=== PATIENT | female | born 1985 | race Caucasian/White ===

== ENCOUNTER 2017-11-01 22:54 | Emergency (ER) | payer OTHER ==
[~2017-11-01] VITALS: Ht 154.9 cm; Wt 79.5 kg
[2017-11-01 22:56] VITALS: TEMP 36.6; Ht 154.9 cm; Wt 79.5 kg
[2017-11-01] MEDS ORDERED: MULT-513 PO (23:08)
[2017-11-01 23:57] VITALS: BP 127/69; PULSE 81; O2SAT 96
--- NOTE | 2017-11-02 00:08 | EMERGENCY ROOM VISIT NOTE ---
History First contact with patient: 22:57 Chief Complaint: FALL Stated Complaint: FALL, STRIKING HEAD History of Present Illness The patient is a 32 year old female who presents to the Emergency Room via ambulance for evaluation of injuries after she fell at the [facility] this evening after a concert. The patient's friend reports that the patient was walking behind her and fell forward. They believe that she tripped as there were a lot of people trying to exit the arena. The patient believes that the patient was knocked out for approximately 5 minutes. The patient does not remember the fall, but does remember the concert and everything that happened before the injury. The patient does admit to moderate alcohol consumption tonight. She currently denies any facial pain, headache, neck pain, back pain or other extremity injuries, denying any pain on my exam. Review of Systems 10 system review was performed and was negative except for pertinent positives and negatives as indicated in history of present illness Past Medical/Surgical History Medical Problems: (1) Nonspecific abnormal results of thyroid function study Surgical Problems: (1) No history of previous surgery Family History Unremarkable Social History Smoking Status: Never Smoker Alcohol Use: occasionally Marital Status: single Occupation Status: employed Current/Historical Medications Scheduled Multivitamins/Minerals (Mvi With Minerals), 1 TAB PO DAILY Physical Exam Vital Signs Date Time Temp Pulse Resp B/P (MAP) Pulse Ox O2 Delivery O2 Flow Rate FiO2 11/01/17 23:57 81 18 127/69 96 Room Air 11/01/17 22:56 36.6 98 20 133/79 96 Room Air Physical Exam CONSTITUTIONAL: Healthy and well nourished. Alert and oriented X 3 with positive affect. GCS 15. Patient does not appear in any acute distress. She is in full spinal immobilization on a long board with cervical collar in place prior to my exam. HEENT: Examination shows a small abrasion to the tip of the nose, otherwise no other facial edema, ecchymosis, abrasions or lacerations noted. She has no tenderness to palpation of the facial bones. No epistaxis, hemotympanum, raccoon's eyes, subconjunctival hemorrhage, hemotympanum or knutson sign. Pupils equal, round and reactive. EOMs intact without evidence for entrapment. NECK: Patient has no focal or generalized tenderness to palpation of the cervical spine. Given the mechanism of injury, cervical collar was left in place until after CT studies were performed. RESPIRATORY: Clear to auscultation bilaterally with no wheezing, crackles, rhonchi or stridor. CARDIOVASCULAR: Regular rate and rhythm with no murmurs, rubs or gallops. GASTROINTESTINAL: Bowel sounds present in all quadrants. Soft and nontender to palpation. MUSCULOSKELETAL: Full range of motion of all joints without discomfort. The patient has a few abrasions to the upper arms and hands, otherwise has full range of motion of all extremities without discomfort. The patient has no tenderness to palpation through the central thoracolumbar spine or ribs. Distal pulses are intact. INTEGUMENTARY: No rash or other significant dermatologic conditions noted. NEUROLOGIC: Cranial nerves II-XII grossly intact. No focal neurologic deficits noted. Upper and lower extremities are sensory intact. Medical Decision & Procedures ER Provider Diagnostic Interpretation: Noncontrast CT of the head and cervical spine did not show any acute fractures, subluxations, intracranial bleed or skull trauma. A small hypodense nodule in the left thyroid lobe is noted, along with scattered small lymph nodes, likely reactive in nature. STATRad reports were reviewed, and local radiologist review is pending. ED Course Patient history and physical exam were performed. Nurse's notes were reviewed. Vital signs were reviewed and were normal. The patient refused any analgesics. Noncontrast CT of the head and cervical spine was normal except for a small hypodense nodule in the left thyroid lobe. The patient reports that she has had thyroid nodules and abnormal thyroid function tests in the past. The patient was encouraged to intermittently apply ice to areas of discomfort. Ibuprofen and Tylenol as needed for pain. The patient was advised that she may have a concussion. The patient reports that she has had concussions before in the past, and understands how to manage them. She was encouraged to follow-up with her PCP as needed for further management. The patient was happy with plan of care, voiced understanding of all discharge instructions, and denied any significant discomfort at the time of discharge. After the patient left the emergency department, she returned because of notable left neck discomfort. CT findings were reviewed with the patient. I explained that her symptoms are likely from cervical spasm from her injury and wearing a cervical collar. She was encouraged to also intermittently apply ice to the neck. She was provided a Flexeril home pack for additional symptomatic relief. Medical Decision Head Trauma GCS Score: 15 Medication Reconcilliation Current Medication List: was personally reviewed by me Blood Pressure Screening Patient's blood pressure: Normal blood pressure Impression Primary Impression: Closed head injury with brief loss of consciousness Additional Impressions: Multiple abrasions Left thyroid nodule Departure Information Patient Instructions My [facility] Problem Qualifiers
[2017-11-02] MEDS ORDERED: FLEXERIL HOME PACK 10 MG VIAL PO ONE (00:15)
--- NOTE | 2017-11-02 06:02 | DIAGNOSTIC IMAGING REPORT ---
CERVICAL SPINE W/O CT DOSE: HISTORY: Trauma. Pain. CHI w/ LOC TECHNIQUE: Multiaxial CT images of the cervical spine were performed and reformatted in the sagittal and coronal plane without the use of contrast. A dose lowering technique was utilized adhering to the principles of ALARA. COMPARISON: None. FINDINGS: No fractures. No subluxation. Prevertebral soft tissues and the C1-C2 interval are intact. No pneumothorax. Nodular appearing thyroid. Prevertebral soft tissues are unremarkable. IMPRESSION: No acute process. The above report was generated using voice recognition software. It may contain grammatical, syntax or spelling errors. Electronically signed by: Matt Andersen M.D. 11/02/2017 6:00 AM Dictated Date/Time: 11/02/2017 6:00 AM
--- NOTE | 2017-11-02 06:04 | DIAGNOSTIC IMAGING REPORT ---
HEAD WITHOUT CONTRAST (CT) CT DOSE: 929.84 mGy.cm HISTORY: Trauma mental status change. CHI w/ LOC TECHNIQUE: Multiaxial CT images of the head were performed without the use of intravenous contrast. A dose lowering technique was utilized adhering to the principles of ALARA. Comparison: None. Findings: Moderate mucosal thickening of the maxillary and ethmoid sinuses. The calvarium and skull base are intact. The ventricles and sulci are within normal limits. There is no mass, hematoma, midline shift, or acute infarct. Impression: No acute intracranial abnormality. Moderate mucosal thickening of the maxillary and ethmoid sinuses. Left extracranial soft tissue edematous change. The above report was generated using voice recognition software. It may contain grammatical, syntax or spelling errors. Electronically signed by: Matt Andersen M.D. 11/02/2017 6:03 AM Dictated Date/Time: 11/02/2017 6:02 AM
== END 2017-11-01 23:59 | disposition home or self-care (01) ==
LOC: C.EDA 22:56
DX: S09.90XA Unspecified injury of head, initial encounter (principal); W19.XXXA Unspecified fall, initial encounter; Y92.29 Other specified public building as the place of occurrence of the external cause; S00.31XA Abrasion of nose, initial encounter; S40.811A Abrasion of right upper arm, initial encounter; S40.812A Abrasion of left upper arm, initial encounter; S60.511A Abrasion of right hand, initial encounter; S60.512A Abrasion of left hand, initial encounter; E04.1 Nontoxic single thyroid nodule

== ENCOUNTER → 2017-11-06 | Outpatient (CLI) | payer BC ==
[~2017-11-06] MED LIST: MULT-513 PO
== END | disposition home or self-care (01) ==
LOC: C.LABBC 11:51
PROVIDERS: ATTEND Nurse Practitioner Family
DX: E04.1 Nontoxic single thyroid nodule (principal)

== ENCOUNTER → 2017-11-11 | Outpatient (CLI) | payer BC ==
--- NOTE | 2017-11-11 09:19 | DIAGNOSTIC IMAGING REPORT ---
THYROID ULTRASOUND HISTORY: E04.1 Solitary thyroid nodule Patient is scheduled on 11/11/17 @ 8: COMPARISON: Cervical spine CT 11/06/2017. FINDINGS: Right lobe: 4.2 x 1.4 x 1.1 cm. There is an 8 x 4 x 4 mm isoechoic nodule posterior to the lower pole. This is well-circumscribed and could represent a small parathyroid adenoma or exophytic nodule. Left lobe: 4.0 x 1.1 x 1.3 cm. 3 mm cyst. No solid nodules. Isthmus: 2 mm in thickness. No nodules. IMPRESSION: 1. An 8 x 4 x 4 mm isoechoic nodule posterior to the lower pole of the right thyroid lobe. This is well circumscribed and could represent a small parathyroid adenoma or exophytic nodule. 2. No solid left thyroid nodules. Electronically signed by: Sharath Boyer M.D. 11/11/2017 9:18 AM Dictated Date/Time: 11/11/2017 9:15 AM
== END | disposition home or self-care (01) ==
LOC: C.ULTR 08:07
PROVIDERS: ATTEND Nurse Practitioner Family
DX: E04.1 Nontoxic single thyroid nodule (principal)

== ENCOUNTER → 2017-11-28 | Outpatient (CLI) | payer BC ==
--- NOTE | 2017-11-28 15:30 | DIAGNOSTIC IMAGING REPORT ---
L SHOULDER MIN 2 VIEWS ROUTINE CLINICAL HISTORY: 32 years-old Female presenting with M25.512 Left shoulder pain, fall 3 weeks ago. TECHNIQUE: External rotation, internal rotation, Grashey views of the left shoulder were obtained. COMPARISON: None. FINDINGS: Glenohumeral and acromioclavicular joints congruent. Linear calcification in the left humeral metaphysis, possibly postprocedural change or growth lines. No acute fracture or malalignment. No advanced degenerative change. No radiographic soft tissue abnormality. IMPRESSION: No acute osseous injury. Electronically signed by: Leoncio Garza M.D. 11/28/2017 3:29 PM Dictated Date/Time: 11/28/2017 3:27 PM
[2017-11-28 17:41] LABS: ALBUMIN 3.9 gm/dl (3.4-5.0); ALT/SGPT 23 U/L (12-78); AST/SGOT 15 U/L (15-37); BLOOD UREA NITROGEN 17 mg/dl (7-18); CALCIUM 9.1 mg/dl (8.5-10.1); CARBON DIOXIDE 30 mmol/L (21-32); GLUCOSE 141 mg/dl (70-99); POTASSIUM 3.7 mmol/L (3.5-5.1); SODIUM 137 mmol/L (136-145)
[2017-11-28 17:43] LABS: ALKALINE PHOSPHATASE 60 U/L (45-117); TOTAL PROTEIN 7.7 gm/dl (6.4-8.2)
== END | disposition home or self-care (01) ==
LOC: C.RADBC 14:56
PROVIDERS: ATTEND Nurse Practitioner Family
DX: M25.512 Pain in left shoulder (principal); E04.1 Nontoxic single thyroid nodule

== ENCOUNTER 2020-05-03 08:03 | Inpatient (IN) ==
[2020-05-03] MEDS ORDERED: OXYTOCIN 30 UNITS/500 ML BAG IV PRN (09:59)
--- NOTE | 2020-05-03 10:02 | Obstetrical Progress Note ---
Date of Service May 03, 2020 Assessment & Plan Admission and Anticipated Discharge Date Admission Date: May 03, 2020 Subjective pt doing well induction for post dates Bedside sono; VT FHR; CAYT1 Ctx; irregular VE:t/thick/-3 roy bulb placed and filled wit 30 cc saline'pt tolerated procedure well Results & Data ([facility]) Vital Signs (Past 12 Hours) Vital Signs Temp Pulse Resp BP 05/03/20 08:09 94 H 135/96 05/03/20 08:08 36.9 C 18
[2020-05-03 10:21] LABS: Hematocrit (blood only) 37.8 % (37-47); Hemoglobin 12.7 g/dL (12.0-16.0); Mean Corpuscular Hemoglobin 29.1 pg (25-34); Mean Corpuscular Volume 86.7 fL (80-100); Platelet Count 251 K/uL (130-400); RDW Coefficient of Variation 13.9 % (11.5-14.5); Red Blood Count 4.36 M/uL (4.2-5.4); White Blood Count 8.92 K/uL (4.8-10.8)
[2020-05-03] MEDS: OXYTOCIN 30 UNITS/500 ML BAG IV PRN (10:41)
[2020-05-03] MEDS: LACTATED RINGER'S 1,000 ML IV PRN ×3 (10:41→20:07)
[2020-05-03] MEDS ORDERED: PENICILLIN G POTASSIUM 6 MU in DEXTROSE 5% 250 ML IV STA (11:10)
[2020-05-03 11:28] LABS: Mean Corpuscular Hgb Conc 33.6 g/dL (32-36)
[2020-05-03] MEDS: PENICILLIN G POTASSIUM 3 MU in DEXTROSE 5% 100 ML IV PRN ×3 (15:27→22:42)
[2020-05-03] MEDS ORDERED: ACETAMINOPHEN 500 MG TAB PO ONE ×2 (15:32→21:21)
[2020-05-03] MEDS ORDERED: BUPIVACAINE 0.25% 30 ML VIAL ONE (16:06)
[2020-05-03] MEDS ORDERED: ePHEDrine sulfate 50 MG/ML AMP ONE (16:06)
[2020-05-03] MEDS ORDERED: fentaNYL citrate 100 MCG/2 ML VIAL ONE (16:07)
[2020-05-03] MEDS ORDERED: fentaNYL 2MCG/ML ROPIV 1.25MG/ML 100 ML BAG EPI ONE (16:07)
--- NOTE | 2020-05-03 16:30 | Anesthesiology Consultation ---
Date of Service May 03, 2020 Assessment & Plan (1) Encounter for pre-operative examination: 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: Acceptable Risk for Labor Epidural Consults Requested none ASA ASA2 Proposed Anesthesia Anesthesia Type: Labor Epidural Risk / Benefits Reviewed With: PT / POA / Parent / Guardian, Accepts Plan and Informed Consent Obtained History Height/Weight Height: 5 ft 1 in Weight: 84.822 kg Allergies Allergy/AdvReac Type Severity Reaction Status Date / Time No Known Drug Allergies Allergy Unknown Verified 05/03/20 08:14 Medications Home Medications Medication Instructions Recorded Confirmed Last Taken levothyroxine 50 mcg tablet See Rx Instructions PO .COMPLEX 08/25/19 05/03/20 05/03/20 05:50 #110 tab prenat.vits,holly,[id number] 1 tab PO DAILY 09/14/19 05/03/20 05/02/20 12:00 loratadine 10 mg pe PO DAILY PRN 11/17/19 05/03/20 05/03/20 07:30 famotidine [Pepcid] 20 mg PO DAILY 05/03/20 05/03/20 05/03/20 01:30 psyllium husk [Metamucil] 1 tbsp PO DAILY 05/03/20 05/03/20 05/02/20 09:00 Active Medications Generic Name Dose Route Start Last Admin Trade Name Freq PRN Reason Stop Dose Admin Lactated Ringer's 1,000 mls @ 125 mls/hr 05/03/20 09:59 05/03/20 16:12 Lr IV 05/05/20 09:58 999 mls/hr .Q8H PRN Administration L&D Protocol Protocol Oxytocin 30 units in 500 mls @ 12 mls/hr 05/03/20 09:59 05/03/20 15:15 Pitocin IV 05/05/20 09:58 0.72 units/hr .Q24H PRN 12 mls/hr Labor Induction/Augmentation Titration Protocol 0.72 UNITS/HR Penicillin G Potassium 3 mu/ 106 mls @ 100 mls/hr 05/03/20 11:07 05/03/20 15:27 Dextrose IV 05/13/20 11:06 100 mls/hr Q4H PRN Administration Give until delivery Past Medical History Medical History History of PCOS Hypothyroidism well controlled with meds Exercise / Class Metabolic Activity II 4-5 Yardwork/Stairs/Walk up hill Past Family History Family History Father Prostate cancer Mother Malignant neoplasm of urethra Family/Other No problems noted. Grandfather (Maternal) Colorectal cancer Denies family history of Ovarian cancer Myocardial infarction Breast cancer Past Surgical History Surgical History No pertinent past surgical history Past Anesthesia History No Hx of Anesthesia Complications and No Family Hx of Anesthesia Complications History of PONV No Hx of PONV and No Hx of Motion Sickness Social History Smoking Status: Never smoker Hx Alcohol Use: Yes Hx Substance Use: No substance use type: does not use Physical Exam Vital Signs Last Vital Signs Temp 98.2 F 05/03/20 15:15 Pulse 91 H 05/03/20 16:27 Resp 16 05/03/20 15:15 BP 137/85 05/03/20 15:41 Pulse Ox 98 05/03/20 16:27 ENMT Mouth: no dentition abnormality Thyromental Distance: > or= 3.5 Finger Breadths Mallampati Class: II Neck normal visual inspection Respiratory normal respiratory effort Auscultation: lungs clear to auscultation bilaterally Cardiovascular Rate/Rhythm: regular rate and regular rhythm Testing Laboratory Results 05/03/20 10:11
[2020-05-03] MEDS ORDERED: NALOXONE HCL 1 MG in SODIUM CHLORIDE 0.9% 1000ML 1,000 ML IV PRN (16:49)
[2020-05-03] MEDS ORDERED: ONDANSETRON INJ 2 MG/ML 2 ML VIAL IV PRN (16:49)
[2020-05-03] MEDS ORDERED: DiphenhydrAMINE HCL 50 MG/ML VIAL IV PRN (16:49)
[2020-05-03] MEDS ORDERED: NALOXONE HCL 0.4 MG/1 ML VIAL/CARP IV PRN (16:49)
[2020-05-03] MEDS ORDERED: ePHEDrine sulfate 50 MG/ML AMP IV PRN (16:49)
[2020-05-03] MEDS ORDERED: CALCIUM CARBONATE 500 MG CHEWABLE TAB ONE (20:23)
[2020-05-03] MEDS: CALCIUM CARBONATE 500 MG CHEWABLE TAB PO PRN (20:24)
[2020-05-04] MEDS: CALCIUM CARBONATE 500 MG CHEWABLE TAB PO PRN (00:11)
[2020-05-04] MEDS ORDERED: FAMOTIDINE 40 MG TABLET PO ONE (00:59)
[2020-05-04] MEDS ORDERED: Nursing to Pharmacy Communication SCH (01:15)
[2020-05-04] MEDS: fentaNYL 2MCG/ML ROPIV 1.25MG/ML 100 ML BAG EPI PRN ×2 (01:55→09:32)
[2020-05-04] MEDS: PENICILLIN G POTASSIUM 3 MU in DEXTROSE 5% 100 ML IV PRN ×3 (03:12→11:37)
[2020-05-04] MEDS: LACTATED RINGER'S 1,000 ML IV PRN ×3 (03:50→14:38)
[2020-05-04] MEDS: OXYTOCIN 30 UNITS/500 ML BAG IV PRN (13:52)
[2020-05-04] MEDS ORDERED: cefOXitin 2,000 MG in DEXTROSE 5% 50 ML IV SCH (15:00)
[2020-05-04] MEDS ORDERED: CITRIC ACID/SODIUM CITRATE 15 ML UDC PO SCH (15:00)
[2020-05-04] MEDS ORDERED: ONDANSETRON INJ 2 MG/ML 2 ML VIAL ONE (15:08)
[2020-05-04] MEDS ORDERED: CITRIC ACID/SODIUM CITRATE 15 ML UDC ONE (15:09)
[2020-05-04] MEDS ORDERED: LIDOCAINE/EPINEPHRINE 2% 1:200,000 20 ML SDV ONE ×2 (15:09→15:34)
[2020-05-04] MEDS ORDERED: SODIUM CHLORIDE 0.9% INJ 10 ML VIAL ONE (15:13)
--- NOTE | 2020-05-04 15:20 | History and Physical Report ---
DATE OF ADMISSION: 05/03/2020 CHIEF COMPLAINT: Arrest of labor, persistent tachycardia. HISTORY OF PRESENT ILLNESS: The patient is a 35-year-old 1, para 0. Her general health is good. She is on thyroid replacement, has been diagnosed for 3 years. No drug allergies. Her due date is 04/26/2020. No other complications. She was brought in for induction, being over her expected date of confinement. Estimated weight on admission was over 8 pounds. She has had IV Pitocin. She has had a Kinney bulb. She has had an epidural for 22 hours. She became fully dilated. She was allowed to labor down for over an hour and she pushed for over 2 hours. The fetus began to exhibit tachycardia for the last hour and a half. She has been unable to engage the head into the mid pelvis. There is a large amount of molding and she has essentially made no progress in descent. After over 2 hours and inability to engage the head into the mid pelvis, she is still at a -1 station, diagnosis of cephalopelvic disproportion was made along with tachycardia and a was undertaken. PAST SURGICAL HISTORY: She has wisdom teeth removed. PAST MEDICAL HISTORY: Hypothyroid for 3 years. SOCIAL HISTORY: No smoking, no alcohol intake. 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 FAMILY HISTORY: Mom at age 56 of bladder cancer. Father 63 and he has bladder cancer. One brother and one sister in good health. REVIEW OF SYSTEMS: HEAD: No symptoms of frequent or severe headaches. EYES: No symptoms of blurred vision or double vision. EARS: No symptoms of frequent ear infections or difficulty hearing. PHYSICAL EXAMINATION: GENERAL: Well-developed, well-nourished 35-year-old white female, alert, oriented x3 and cooperative, in no acute distress, appears her stated age. EYES: Conjunctivae are pink. Sclerae white, no evidence of jaundice. EARS: Had normal light reflex bilaterally. NOSE: Had normal mucosa. Septum is midline. There were no polyps. THROAT: No erythema or evidence of infection. Teeth are in good state of repair. HEAD: Normocephalic, normal distribution of hair. NECK: Supple. Trachea midline. Thyroid is not enlarged. There is no adenopathy appreciated. Both carotids are of good intensity. CHEST: Clear to auscultation and percussion. No wheezes, rales or rhonchi appreciated. HEART: Had a regular rhythm. S1, S2 are normal. BREASTS: Normal. ABDOMEN: Revealed a gravid uterus, estimated weight of well over 8 pounds. PELVIS: Large amount of molding, vertex presentation, -1 station. MUSCULOSKELETAL: Revealed no calf tenderness. IMPRESSIONS OF THIS CASE: Post-term, hypothyroidism, tachycardia, macrosomia, cephalopelvic disproportion.
[2020-05-04 15:30] LABS: Basophils # (auto) 0.01 K/uL (0-0.2); Basophils % (auto) 0.1 %; Eosinophils # (auto) 0.01 K/uL (0-0.5); Eosinophils % (auto) 0.1 %; Hematocrit (blood only) 35.9 % (37-47); Hemoglobin 12.2 g/dL (12.0-16.0); Immature Granulocytes # (auto) 0.08 K/uL (0.00-0.02); Immature Granulocytes % (auto) 0.4 %; Lymphocytes # (auto) 0.67 K/uL (1.2-3.4); Lymphocytes % (auto) 3.5 %; Mean Corpuscular Hemoglobin 29.3 pg (25-34); Mean Corpuscular Volume 86.1 fL (80-100); Mean Platelet Volume 9.7 fL (7.4-10.4); Monocytes # (auto) 1.47 K/uL (0.11-0.59); Monocytes % (auto) 7.7 %; Neutrophils # (auto) 16.75 K/uL (1.4-6.5); Neutrophils % (auto) 88.2 %; Platelet Count 219 K/uL (130-400); RDW Coefficient of Variation 14.1 % (11.5-14.5); Red Blood Count 4.17 M/uL (4.2-5.4); White Blood Count 18.99 K/uL (4.8-10.8)
[2020-05-04] MEDS ORDERED: fentaNYL citrate 100 MCG/2 ML VIAL ONE (15:31)
[2020-05-04] MEDS ORDERED: OXYTOCIN 10 UNITS/ML VIAL ONE ×4 (15:51→16:16)
[2020-05-04] MEDS ORDERED: MoRPHine SULFATE PF 1 MG/ML 10 ML AMP/VIAL ONE (15:54)
[2020-05-04] MEDS ORDERED: LACTATED RINGER'S 500 ML IV PRN (15:57)
[2020-05-04] MEDS ORDERED: DiphenhydrAMINE HCL 50 MG/ML VIAL IV PRN (15:57)
[2020-05-04] MEDS ORDERED: NALOXONE HCL 0.4 MG/1 ML VIAL/CARP IV PRN (15:57)
[2020-05-04] MEDS ORDERED: MoRPHine SULFATE PF 1 MG/ML 10 ML AMP/VIAL EPI ONE (15:57)
[2020-05-04] MEDS ORDERED: NALOXONE HCL 1 MG in SODIUM CHLORIDE 0.9% 1000ML 1,000 ML IV PRN (15:57)
[2020-05-04] MEDS ORDERED: ONDANSETRON INJ 2 MG/ML 2 ML VIAL IV PRN (15:57)
[2020-05-04] MEDS ORDERED: ePHEDrine sulfate 50 MG/ML AMP IV PRN (15:57)
[2020-05-04] MEDS ORDERED: HYDROmorphone INJ 0.5 MG/0.5 ML SYR IV PRN (15:57)
[2020-05-04] MEDS ORDERED: NALOXONE HCL 0.08 MG in SYRINGE 1.8 ML IV PRN (15:57)
[2020-05-04] MEDS ORDERED: ACETAMINOPHEN 1000 MG/100 ML IV IV PRN (15:57)
[2020-05-04] MEDS ORDERED: NO NARCOTICS OR SEDATIVES SCH (16:00)
[2020-05-04] MEDS ORDERED: KETOROLAC 30 MG/ML VIAL ONE (16:00)
[2020-05-04] MEDS ORDERED: SODIUM CHLORIDE 0.9% 1000ML 1,000 ML IV SCH (16:00)
[2020-05-04] MEDS ORDERED: MAGNESIUM HYDROXIDE SUSP 30 ML UDC PO PRN (16:44)
[2020-05-04] MEDS ORDERED: BENZOCAINE 20% AER SPR 82.5 GM CAN EXT PRN (16:44)
[2020-05-04] MEDS ORDERED: SUPERCREAM 0.870% 15 GM JAR EXT PRN (16:44)
[2020-05-04] MEDS ORDERED: HYDROCORTISONE ACETATE 25 MG SUPP PR PRN (16:44)
[2020-05-04] MEDS ORDERED: DIPHTHERIA/TETANUS/PERTUSSIS 0.5 ML SYR/VIAL IM ONE (16:44)
[2020-05-04] MEDS ORDERED: SENNA 8.6 MG TAB PO PRN (16:44)
--- NOTE | 2020-05-04 16:44 | Anesthesia Procedure Note ---
Date of Service May 04, 2020 Anesthesia Post Epidural Note Vital Signs Vital Signs: Temp Pulse Resp BP Pulse Ox 37.0 C 115 H 20 130/76 96 05/04/20 13:05 05/04/20 15:19 05/04/20 12:30 05/04/20 15:19 05/04/20 15:13 Pain Intensity Head: Pain Intensity: 0 Notes Mental Status: alert / awake / arousable and participated in evaluation Nausea / Vomiting: adequately controlled Pain: adequately controlled Airway Patency, RR, SpO2: stable & adequate BP & HR: stable & adequate Hydration State: stable & adequate Neuraxial Anesthesia: was administered and sensory block is resolving Anesthetic Complications: no major complications apparent and Pt Satisfied with anesthetic care Epidural: Removed without complications and With tip intact
--- NOTE | 2020-05-04 16:44 | Post Operative Brief Note ---
Immediate Post Op Note v1 Date of Surgery May 04, 2020 Pre & Post Diagnosis tachycardia cephalopelvic disproportion Operation Date: 05/04/20 15:15 <No data on this case meets the specified criteria> direct occiput posterior I identified the patient and participated in the time-out.: Yes Procedure low segment section Operation Date: 05/04/20 15:15 <No data on this case meets the specified criteria> Surgeon Eduin Zhang MD Budget Director nurse specimen preparation assistant Estimated Blood Loss 700 Findings Consistent with Post-Op Diagnosis occiput posterior Specimens placenta Anesthesia Type MAC Epidural Disposition Accompanied Patient To Recovery: No Disposition: Recovery Room
--- NOTE | 2020-05-04 16:54 | Anesthesiology Progress Note ---
Date of Service May 04, 2020 Anesthesia Post Procedure Vital Signs Vital Signs: Temp Pulse Resp BP Pulse Ox 05/04/20 16:49 87 97 05/04/20 16:44 89 122/78 97 05/04/20 15:19 115 H 130/76 05/04/20 15:13 118 H 96 05/04/20 15:10 108 H 94 05/04/20 15:08 106 H 95 05/04/20 15:05 108 H 140/68 05/04/20 15:03 109 H 96 05/04/20 15:00 114 H 93 05/04/20 14:58 114 H 96 05/04/20 14:53 113 H 95 05/04/20 14:51 113 H 138/80 94 05/04/20 14:48 122 H 95 05/04/20 14:43 116 H 96 05/04/20 14:38 119 H 74 L 05/04/20 14:37 120 H 129/75 05/04/20 14:33 121 H 97 05/04/20 14:28 122 H 95 05/04/20 14:23 125 H 70 L 05/04/20 14:20 118 H 139/68 05/04/20 14:18 123 H 95 05/04/20 14:13 132 H 93 05/04/20 14:08 123 H 96 05/04/20 14:05 121 H 112/65 05/04/20 14:03 120 H 96 05/04/20 13:58 124 H 96 05/04/20 13:57 122 H 90 05/04/20 13:53 123 H 96 05/04/20 13:51 127 H 138/76 05/04/20 13:50 128 H 94 05/04/20 13:48 129 H 96 05/04/20 13:43 127 H 96 05/04/20 13:42 123 H 93 05/04/20 13:38 133 H 94 05/04/20 13:36 129 H 127/75 05/04/20 13:33 129 H 97 05/04/20 13:28 117 H 96 05/04/20 13:23 115 H 97 05/04/20 13:20 115 H 129/65 05/04/20 13:18 121 H 97 05/04/20 13:13 123 H 97 05/04/20 13:08 118 H 98 05/04/20 13:05 37.0 C 05/04/20 13:03 127 H 96 05/04/20 13:00 129 H 81 L 05/04/20 12:58 122 H 97 05/04/20 12:53 117 H 97 05/04/20 12:51 114 H 141/77 H 05/04/20 12:48 120 H 92 05/04/20 12:43 120 H 97 05/04/20 12:42 119 H 89 L 05/04/20 12:38 120 H 97 05/04/20 12:35 116 H 135/82 05/04/20 12:33 120 H 97 05/04/20 12:30 20 05/04/20 12:28 108 H 96 05/04/20 12:23 116 H 96 05/04/20 12:20 110 H 124/73 05/04/20 12:18 104 H 97 05/04/20 12:13 104 H 95 05/04/20 12:08 115 H 96 05/04/20 12:05 106 H 127/73 05/04/20 12:03 100 H 95 05/04/20 12:00 18 05/04/20 11:58 117 H 96 05/04/20 11:53 101 H 96 05/04/20 11:51 100 H 130/71 05/04/20 11:48 99 H 96 05/04/20 11:43 104 H 96 05/04/20 11:38 108 H 97 05/04/20 11:35 109 H 133/78 05/04/20 11:33 109 H 97 05/04/20 11:30 18 05/04/20 11:28 107 H 97 05/04/20 11:23 103 H 97 05/04/20 11:21 105 H 129/75 05/04/20 11:18 108 H 98 05/04/20 11:13 107 H 98 05/04/20 11:08 109 H 97 05/04/20 11:05 114 H 130/76 05/04/20 11:03 111 H 97 05/04/20 11:01 37.1 C 05/04/20 11:00 20 05/04/20 10:58 101 H 97 05/04/20 10:53 111 H 97 05/04/20 10:52 105 H 128/78 05/04/20 10:48 108 H 97 05/04/20 10:43 102 H 97 05/04/20 10:38 111 H 98 05/04/20 10:36 101 H 127/74 05/04/20 10:33 111 H 98 05/04/20 10:30 18 05/04/20 10:28 117 H 97 05/04/20 10:23 108 H 96 05/04/20 10:22 100 H 123/80 05/04/20 10:18 108 H 96 05/04/20 10:13 109 H 96 05/04/20 10:08 113 H 97 05/04/20 10:05 109 H 133/84 05/04/20 10:03 103 H 97 05/04/20 10:00 18 05/04/20 09:58 108 H 97 05/04/20 09:53 104 H 96 05/04/20 09:50 103 H 137/84 05/04/20 09:48 108 H 96 05/04/20 09:43 98 H 96 05/04/20 09:38 108 H 96 05/04/20 09:35 101 H 131/86 05/04/20 09:33 97 H 97 05/04/20 09:30 20 05/04/20 09:28 99 H 97 05/04/20 09:23 102 H 97 05/04/20 09:20 104 H 126/81 05/04/20 09:18 106 H 95 05/04/20 09:13 108 H 95 05/04/20 09:10 114 H 94 05/04/20 09:08 114 H 95 05/04/20 09:05 109 H 132/80 05/04/20 09:03 114 H 96 05/04/20 09:00 37.3 C 18 05/04/20 08:58 114 H 97 05/04/20 08:53 109 H 96 05/04/20 08:50 112 H 130/82 05/04/20 08:49 103 H 94 05/04/20 08:48 105 H 95 05/04/20 08:43 110 H 95 05/04/20 08:40 108 H 92 05/04/20 08:38 101 H 97 05/04/20 08:35 105 H 132/86 05/04/20 08:33 103 H 97 05/04/20 08:30 20 05/04/20 08:28 105 H 96 05/04/20 08:23 103 H 95 05/04/20 08:21 94 H 120/65 05/04/20 08:18 100 H 96 05/04/20 08:13 103 H 96 05/04/20 08:08 101 H 97 05/04/20 08:06 101 H 117/67 05/04/20 08:03 99 H 96 05/04/20 08:00 18 05/04/20 07:58 98 H 96 05/04/20 07:53 101 H 95 05/04/20 07:50 101 H 124/67 05/04/20 07:48 93 H 95 05/04/20 07:43 98 H 95 05/04/20 07:38 95 H 95 05/04/20 07:35 97 H 110/58 L 05/04/20 07:33 98 H 95 05/04/20 07:30 18 05/04/20 07:28 95 H 95 05/04/20 07:23 93 H 96 05/04/20 07:20 96 H 113/58 L 05/04/20 07:18 96 H 96 05/04/20 07:13 93 H 96 05/04/20 07:08 92 H 95 05/04/20 07:06 100 H 109/61 05/04/20 07:03 111 H 96 05/04/20 07:00 37.4 C 18 05/04/20 06:58 108 H 95 05/04/20 06:54 94 H 94 05/04/20 06:53 94 H 95 05/04/20 06:51 100 H 116/62 05/04/20 06:49 100 H 94 05/04/20 06:48 102 H 95 05/04/20 06:43 95 H 94 05/04/20 06:38 100 H 94 05/04/20 06:35 100 H 18 111/59 L 93 05/04/20 06:33 96 H 94 05/04/20 06:28 99 H 93 05/04/20 06:23 97 H 94 05/04/20 06:22 103 H 94 05/04/20 06:20 96 H 118/64 05/04/20 06:18 100 H 95 05/04/20 06:17 101 H 94 05/04/20 06:13 100 H 94 05/04/20 06:10 104 H 94 05/04/20 06:08 98 H 94 05/04/20 06:05 100 H 113/64 93 05/04/20 06:03 102 H 95 05/04/20 06:00 102 H 94 05/04/20 05:58 101 H 94 05/04/20 05:53 105 H 95 05/04/20 05:51 37.4 C 20 05/04/20 05:48 108 H 96 05/04/20 05:45 113 H 93 05/04/20 05:43 118 H 97 05/04/20 05:38 106 H 96 05/04/20 05:36 105 H 135/67 05/04/20 05:33 98 H 95 05/04/20 05:28 101 H 96 05/04/20 05:23 99 H 96 05/04/20 05:22 103 H 134/64 05/04/20 05:18 95 H 96 05/04/20 05:13 99 H 96 05/04/20 05:08 94 H 95 05/04/20 05:06 102 H 135/65 05/04/20 05:03 112 H 96 05/04/20 04:58 99 H 95 05/04/20 04:53 108 H 95 05/04/20 04:50 96 H 126/62 05/04/20 04:48 91 H 96 05/04/20 04:43 94 H 95 05/04/20 04:38 96 H 95 05/04/20 04:36 100 H 130/62 05/04/20 04:33 97 H 95 05/04/20 04:28 92 H 95 05/04/20 04:23 98 H 95 05/04/20 04:22 93 H 135/66 05/04/20 04:18 95 H 96 05/04/20 04:13 93 H 96 05/04/20 04:08 92 H 96 05/04/20 04:06 100 H 138/70 05/04/20 04:03 93 H 96 05/04/20 03:58 100 H 97 05/04/20 03:53 96 H 97 05/04/20 03:50 36.7 C 104 H 18 126/72 05/04/20 03:48 102 H 97 05/04/20 03:43 106 H 98 05/04/20 03:38 100 H 97 05/04/20 03:35 102 H 131/79 05/04/20 03:33 94 H 96 05/04/20 03:28 97 H 96 05/04/20 03:23 99 H 97 05/04/20 03:21 97 H 136/76 05/04/20 03:18 95 H 97 05/04/20 03:13 100 H 97 05/04/20 03:08 104 H 95 05/04/20 03:07 107 H 93 05/04/20 03:06 37.4 C 112 H 16 115/74 05/04/20 03:03 105 H 97 05/04/20 03:00 93 H 94 05/04/20 02:58 94 H 95 05/04/20 02:55 93 H 94 05/04/20 02:53 92 H 95 05/04/20 02:50 90 135/69 05/04/20 02:49 94 H 94 05/04/20 02:48 91 H 95 05/04/20 02:44 91 H 94 05/04/20 02:43 93 H 94 05/04/20 02:39 93 H 94 05/04/20 02:38 93 H 95 05/04/20 02:35 92 H 139/76 05/04/20 02:33 93 H 95 05/04/20 02:28 99 H 95 05/04/20 02:23 93 H 95 05/04/20 02:20 99 H 128/75 05/04/20 02:18 95 H 95 05/04/20 02:13 96 H 96 05/04/20 02:08 100 H 96 05/04/20 02:05 99 H 143/78 H 05/04/20 02:03 101 H 96 05/04/20 02:00 108 H 91 05/04/20 01:58 102 H 96 05/04/20 01:53 96 H 95 05/04/20 01:50 97 H 125/68 05/04/20 01:48 92 H 96 05/04/20 01:43 94 H 96 05/04/20 01:38 92 H 96 05/04/20 01:35 93 H 130/63 05/04/20 01:33 93 H 96 05/04/20 01:28 90 95 05/04/20 01:23 93 H 96 05/04/20 01:20 102 H 134/56 L 05/04/20 01:18 97 H 95 05/04/20 01:13 107 H 95 05/04/20 01:08 105 H 95 05/04/20 01:06 37.2 C 107 H 18 131/72 05/04/20 01:03 107 H 97 05/04/20 01:01 107 H 94 05/04/20 00:58 108 H 95 05/04/20 00:53 105 H 96 05/04/20 00:52 105 H 134/76 05/04/20 00:48 105 H 96 05/04/20 00:43 105 H 96 05/04/20 00:38 102 H 94 05/04/20 00:36 100 H 94 05/04/20 00:33 93 H 94 05/04/20 00:28 96 H 94 05/04/20 00:25 96 H 94 05/04/20 00:23 101 H 94 05/04/20 00:19 97 H 94 05/04/20 00:18 97 H 94 05/04/20 00:13 98 H 96 05/04/20 00:08 97 H 97 05/04/20 00:07 108 H 143/84 H 05/04/20 00:03 100 H 96 05/03/20 23:58 97 H 95 05/03/20 23:57 97 H 94 05/03/20 23:53 98 H 95 05/03/20 23:50 100 H 124/65 05/03/20 23:48 97 H 95 05/03/20 23:44 95 H 94 05/03/20 23:43 95 H 94 05/03/20 23:38 96 H 96 05/03/20 23:37 104 H 94 05/03/20 23:33 90 95 05/03/20 23:28 91 H 95 05/03/20 23:23 90 95 05/03/20 23:21 95 H 119/61 05/03/20 23:18 97 H 95 05/03/20 23:13 100 H 96 05/03/20 23:08 91 H 96 05/03/20 23:06 90 126/71 05/03/20 23:03 99 H 96 09/22/20 22:58 93 H 96 20 22:53 92 H 95 20 22:51 96 H 125/76 20 22:48 95 H 96 20 22:47 37.0 C 18 05/03/20 22:43 93 H 96 05/03/20 22:38 91 H 96 20 22:36 96 H 138/74 05/03/20 22:33 105 H 97 05/03/20 22:28 103 H 96 05/03/20 22:23 107 H 98 05/03/20 22:22 105 H 142/90 H 05/03/20 22:18 105 H 97 05/03/20 22:13 110 H 96 05/03/20 22:08 118 H 98 05/03/20 22:06 114 H 20 127/77 05/03/20 22:03 127 H 98 05/03/20 21:58 120 H 98 05/03/20 21:53 112 H 99 05/03/20 21:52 111 H 141/90 H 05/03/20 21:48 113 H 98 20 21:43 107 H 98 20 21:38 103 H 98 20 21:36 99 H 137/78 20 21:33 101 H 99 05/03/20 21:28 112 H 98 20 21:23 112 H 99 20 21:20 110 H 138/80 20 21:18 99 H 97 20 21:13 109 H 99 20 21:08 89 100 2220 21:05 99 H 137/66 20 21:03 102 H 100 20 21:00 37.0 C 18 05/03/20 20:58 92 H 98 20 20:53 96 H 100 20 20:51 91 H 133/80 20 20:48 90 100 2220 20:43 93 H 98 20 20:38 93 H 100 22/20 20:37 91 H 130/70 05/03/20 20:33 89 99 2220 20:28 95 H 100 09/22/20 20:23 88 98 09/22/20 20:20 84 18 133/82 05/03/20 20:18 102 H 99 05/03/20 20:13 91 H 98 05/03/20 20:08 92 H 99 05/03/20 20:06 93 H 134/76 05/03/20 20:05 93 H 93 05/03/20 20:03 100 H 99 05/03/20 19:58 86 100 05/03/20 19:53 87 100 05/03/20 19:51 84 122/71 05/03/20 19:48 90 100 05/03/20 19:43 81 100 05/03/20 19:38 81 100 05/03/20 19:35 75 120/70 05/03/20 19:33 78 100 05/03/20 19:28 81 100 05/03/20 19:23 76 100 05/03/20 19:21 81 118/66 05/03/20 19:18 73 99 05/03/20 19:13 82 100 05/03/20 19:07 87 98 05/03/20 19:05 97 H 125/84 05/03/20 19:02 95 H 99 05/03/20 19:00 36.7 C 18 05/03/20 18:57 93 H 97 05/03/20 18:52 98 H 98 05/03/20 18:51 101 H 91 05/03/20 18:47 85 136/73 99 05/03/20 18:44 98 H 112/70 05/03/20 18:42 83 99 05/03/20 18:37 84 115/86 98 05/03/20 18:33 88 117/84 05/03/20 18:32 87 98 05/03/20 18:30 20 05/03/20 18:27 97 H 98 05/03/20 18:22 106 H 99 05/03/20 18:17 91 H 133/77 98 05/03/20 18:15 16 05/03/20 18:12 90 98 05/03/20 18:07 93 H 137/79 99 05/03/20 18:03 93 H 135/78 05/03/20 18:02 92 H 98 05/03/20 18:00 20 05/03/20 17:57 85 134/80 98 05/03/20 17:52 88 139/77 98 05/03/20 17:47 82 98 05/03/20 17:46 87 124/79 05/03/20 17:45 18 05/03/20 17:42 89 126/78 97 05/03/20 17:37 97 H 128/82 99 05/03/20 17:32 88 96 05/03/20 17:31 83 129/71 05/03/20 17:30 18 05/03/20 17:27 80 139/78 96 05/03/20 17:22 91 H 121/87 97 05/03/20 17:17 84 96 05/03/20 17:16 82 119/74 05/03/20 17:15 16 05/03/20 17:14 83 119/80 05/03/20 17:12 83 118/78 98 05/03/20 17:10 76 121/67 05/03/20 17:09 84 121/69 05/03/20 17:07 85 96 05/03/20 17:06 86 123/72 05/03/20 17:04 91 H 118/81 05/03/20 17:02 87 113/68 96 05/03/20 17:00 91 H 18 111/80 05/03/20 16:58 85 137/83 05/03/20 16:57 87 96 05/03/20 16:56 91 H 136/81 Pain Intensity Head: Pain Intensity: 0 Transfer of Care Handoff Completed per policy Notes Mental Status: alert / awake / arousable and participated in evaluation Nausea / Vomiting: adequately controlled Pain: adequately controlled Airway Patency, RR, SpO2: stable & adequate BP & HR: stable & adequate Hydration State: stable & adequate Neuraxial Anesthesia: was administered and sensory block is resolving Anesthetic Complications: no major complications apparent and Pt Satisfied with anesthetic care
--- NOTE | 2020-05-04 16:54 | Progress Notes ---
DATE: 05/04/2020 Mrs. Rose is a 1, para 1, blood type A positive, group B strep positive, was brought in for induction post-term. She was given Pitocin, Kinney bulb, epidural. Eventually, she became fully dilated. I let her labor down for over an hour and then started to push. She pushed for over 2 hours and was unable to get the head into the mid pelvis. She also developed tachycardia, which persisted for about an hour and a half. She was group B strep positive. She had multiple doses of penicillin. After pushing for over 2 hours and not being able to engage the head into the mid pelvis, a was called.
[2020-05-04] MEDS ORDERED: SODIUM CHLORIDE 0.65% NA SOLN 45 ML (OCEAN) ONE (17:08)
--- NOTE | 2020-05-04 17:47 | Operative Report (OR) ---
DATE OF OPERATION: 05/04/2020 PREOPERATIVE DIAGNOSES: Cephalopelvic disproportion, persistent tachycardia, failure to descend. POSTOPERATIVE DIAGNOSIS: Delivered live male infant, direct occiput posterior position. SURGEON: Davy Zhang MD. ESTIMATED BLOOD LOSS: 700 mL. ANESTHESIA: Epidural. COLLECTION CARD CLERK: Nursing assist. OPERATIVE FINDINGS AND PROCEDURE: The patient was brought to the OR table, correctly identified by armband and conversation. Epidural anesthesia was topped off. Kinney catheter was inserted and connected to gravity drainage. Compression stockings were applied. Lower abdomen was painted with an alcohol based sterilizing solution and was draped in the usual sterile fashion. Level of the anesthesia was checked and found to be adequate. A Pfannenstiel incision was made and carried down to the anterior fascia by sharp dissection. Hemostasis was secured by electrocauterization. Fascia was incised transversely, from the underlying muscle by blunt and sharp dissection. Recti muscles were in the midline exposing the peritoneum, which was carefully raised and entered. Bladder was high. We used a self-retraining retractor to expose the lower uterine segment. Head was palpable. I made an incision above the vesicouterine fold, undermined the bladder, pushed out of the operative field, scored the lower uterine segment, then entered with scissors. Fluid at this time was clear. I then reached in and dislodged the head from the pelvis and then applied a vectis retractor, pushed out a live male via direct OP position. Infant breathed and cried spontaneously, was attended to by the parachute folder who was scrubbed and present at the time of delivery. Cord gases were sent. Cord blood was sent. The placenta was removed without difficulty. Uterine cavity was cleansed. Additional membranes were removed. Ring forceps were used to grasp the edges of the myometrial defect. 10 units of Pitocin was placed into the myometrium. The myometrium was then approximated in 2 layers. The muscular layer was approximated with continuous interlocking suture of heavy chromic, then the fascial layer was approximated over this with continuous interlocking suture of Vicryl, 3 [id number] sutures were placed then along the suture line to complete the approximation. Hemostasis was excellent. Peritoneal edges restored with a continuous plain suture, which restored the integrity of the vesicouterine fold. The pelvis was cleansed of all blood clots and debris. Suture line was inspected and found to be hemostatic. Uterus, tubes, and ovaries were reinserted into the abdominal cavity. Retractor was removed. Careful anatomical approximation of anterior abdominal wall was performed. Peritoneum was closed with a mattress suture of chromic catgut. Recti muscles were approximated with interrupted [id number] suture of chromic catgut. The fascia was closed with continuous interlocking suture of Vicryl on each side, tied in the midline. SubQ was approximated with a running plain. The skin edges were approximated with staple clips. The patient tolerated the procedure well and left the OR in good condition. I attest to the content of the Intraoperative Record and any orders documented therein. Any exception s are noted below.
[2020-05-04] MEDS: SIMETHICONE 80 MG CHEW PO SCH ×2 (18:29→21:11)
[2020-05-04] MEDS: OXYTOCIN 20 UNITS in LACTATED RINGER'S 1,000 ML IV SCH (19:04)
[2020-05-04] MEDS: DOCUSATE SODIUM 100 MG CAP PO SCH (21:12)
[2020-05-04] MEDS: KETOROLAC 30 MG/ML VIAL IV PRN (22:59)
[2020-05-05] MEDS: OXYTOCIN 20 UNITS in LACTATED RINGER'S 1,000 ML IV SCH (02:27)
[2020-05-05] MEDS: KETOROLAC 30 MG/ML VIAL IV PRN (06:23)
[2020-05-05] MEDS: LEVOTHYROXINE SODIUM 50 MCG TABLET PO SCH (06:26)
[2020-05-05 07:07] LABS: Basophils # (auto) 0.02 K/uL (0-0.2); Basophils % (auto) 0.1 %; Eosinophils # (auto) 0.22 K/uL (0-0.5); Eosinophils % (auto) 1.4 %; Hematocrit (blood only) 30.8 % (37-47); Hemoglobin 10.5 g/dL (12.0-16.0); Immature Granulocytes # (auto) 0.06 K/uL (0.00-0.02); Immature Granulocytes % (auto) 0.4 %; Lymphocytes # (auto) 1.08 K/uL (1.2-3.4); Lymphocytes % (auto) 6.7 %; Mean Corpuscular Hemoglobin 29.6 pg (25-34); Mean Corpuscular Hgb Conc 34.1 g/dL (32-36); Mean Corpuscular Volume 86.8 fL (80-100); Monocytes # (auto) 1.09 K/uL (0.11-0.59); Monocytes % (auto) 6.8 %; Neutrophils # (auto) 13.54 K/uL (1.4-6.5); Neutrophils % (auto) 84.6 %; Platelet Count 210 K/uL (130-400); RDW Coefficient of Variation 14.2 % (11.5-14.5); RDW Standard Deviation 45.2 fL (36.4-46.3); Red Blood Count 3.55 M/uL (4.2-5.4); White Blood Count 16.01 K/uL (4.8-10.8)
[2020-05-05] MEDS: DOCUSATE SODIUM 100 MG CAP PO SCH ×2 (09:18→19:23)
[2020-05-05] MEDS: SIMETHICONE 80 MG CHEW PO SCH ×4 (09:18→21:14)
[2020-05-05] MEDS: PRENATAL VITAMIN 1 TAB PO SCH (09:18)
[2020-05-05] MEDS: FERROUS SULFATE 325 MG TAB PO SCH (09:19)
[2020-05-05] MEDS ORDERED: DC INTRASPINAL MORPHINE ONE (09:57)
[2020-05-05] MEDS ORDERED: ZOLPIDEM TARTRATE 5 MG TAB PO PRN (09:58)
[2020-05-05] MEDS ORDERED: MEPERIDINE HCL 50 MG/ML CARP IV PRN (09:58)
[2020-05-05] MEDS ORDERED: DiphenhydrAMINE HCL 50 MG/ML VIAL IV PRN (09:58)
[2020-05-05] MEDS ORDERED: ONDANSETRON INJ 2 MG/ML 2 ML VIAL IV PRN (09:58)
[2020-05-05] MEDS ORDERED: KETOROLAC 30 MG/ML VIAL IV PRN (09:58)
[2020-05-05] MEDS ORDERED: PROMETHAZINE HCL 25 MG in SODIUM CHLORIDE 0.9% 50 ML IV PRN (09:58)
[2020-05-05] MEDS: IBUPROFEN 600 MG TAB PO PRN ×4 (10:20→23:49)
[2020-05-05] MEDS: OXYCODONE/ACETAMINOPHEN 5mg/325mg TAB PO PRN ×4 (10:20→23:48)
--- NOTE | 2020-05-05 12:15 | Obstetrical Progress Note ---
Date of Service May 05, 2020 Assessment & Plan (1) delivery delivered: Day#1 Pt doing well Continue day #1 care Results & Data ([facility]) Vital Signs (Past 12 Hours) Vital Signs Temp Pulse Resp BP Pulse Ox 05/05/20 10:30 20 95 05/05/20 09:30 18 94 05/05/20 08:30 18 93 05/05/20 08:01 36.8 C 90 18 100/62 95 05/05/20 07:55 18 94 05/05/20 06:30 16 96 05/05/20 05:05 37.3 C 108 H 18 104/68 96 05/05/20 04:25 16 94 05/05/20 03:30 16 96 05/05/20 02:05 18 95 05/05/20 01:00 18 96
[2020-05-05] MEDS ORDERED: bisacodyL 5 MG TABEC PO SCH (20:00)
[2020-05-06] MEDS: LEVOTHYROXINE SODIUM 50 MCG TABLET PO SCH (06:15)
[2020-05-06] MEDS: LACTATED RINGER'S 1,000 ML IV SCH ×2 (07:29→09:28)
[2020-05-06] MEDS: SIMETHICONE 80 MG CHEW PO SCH ×4 (08:21→20:15)
[2020-05-06] MEDS: IBUPROFEN 600 MG TAB PO PRN ×2 (08:21→12:55)
[2020-05-06] MEDS: FERROUS SULFATE 325 MG TAB PO SCH (08:22)
[2020-05-06] MEDS: PRENATAL VITAMIN 1 TAB PO SCH (08:22)
[2020-05-06] MEDS: OXYCODONE/ACETAMINOPHEN 5mg/325mg TAB PO PRN ×3 (08:22→16:49)
[2020-05-06] MEDS: DOCUSATE SODIUM 100 MG CAP PO SCH ×2 (08:22→20:15)
--- NOTE | 2020-05-06 08:36 | Surgery Progress Note ---
Date of Service May 06, 2020 Assessment & Plan Admission and Anticipated Discharge Date Admission Date: May 03, 2020 Subjective POD#2 doing well plans to go home today Physical Exam Constitutional: WD/WN, vitals as above comfortable incision c/d/i abdomen is soft and non-tender no edema neg [facility] for d/c today follow up in 1 week for incision check Results & Data ([facility]) Vital Signs (Past 12 Hours) Vital Signs Temp Pulse Resp BP Pulse Ox 05/05/20 23:40 36.6 C 87 18 114/77 95 Laboratory Results 05/03/20 05/04/20 05/04/20 10:11 15:13 15:14 WBC 8.92 18.99 H RBC 4.36 4.17 L Hgb 12.7 12.2 Hct 37.8 35.9 L MCV 86.7 86.1 MCH 29.1 29.3 MCHC 33.6 34.0 RDW Std Deviation 44.0 44.0 RDW Coeff of Rubén 13.9 14.1 Plt Count 251 219 MPV 10.0 9.7 Immature Gran % (Auto) 0.4 Neut % (Auto) 88.2 Lymph % (Auto) 3.5 [place] % (Auto) 7.7 Eos % (Auto) 0.1 Baso % (Auto) 0.1 Neut # (Auto) 16.75 H Lymph # (Auto) 0.67 L [place] # (Auto) 1.47 H Eos # (Auto) 0.01 Baso # (Auto) 0.01 Immature Gran # (Auto) 0.08 H Cord ABG pH Cord ABG pCO2 Cord ABG pO2 Cord ABG HCO3 Cord ABG Base Excess Cord ABG O2 Sat Cord VBG pH Cord VBG pCO2 Cord VBG pO2 Cord VBG HCO3 Cord VBG Base Excess Cord VBG O2 Sat Barometric Pressure Blood Gas Comments Blood Type A Positive Antibody Screen NEGATIVE 05/04/20 05/04/20 05/05/20 15:49 15:49 06:02 WBC 16.01 H RBC 3.55 L Hgb 10.5 L Hct 30.8 L MCV 86.8 MCH 29.6 MCHC 34.1 RDW Std Deviation 45.2 RDW Coeff of Rubén 14.2 Plt Count 210 MPV 10.0 Immature Gran % (Auto) 0.4 Neut % (Auto) 84.6 Lymph % (Auto) 6.7 [place] % (Auto) 6.8 Eos % (Auto) 1.4 Baso % (Auto) 0.1 Neut # (Auto) 13.54 H Lymph # (Auto) 1.08 L [place] # (Auto) 1.09 H Eos # (Auto) 0.22 Baso # (Auto) 0.02 Immature Gran # (Auto) 0.06 H Cord ABG pH Cancelled Cord ABG pCO2 Cancelled Cord ABG pO2 Cancelled Cord ABG HCO3 Cancelled Cord ABG Base Excess Cancelled Cord ABG O2 Sat Cancelled Cord VBG pH Cancelled Cord VBG pCO2 Cancelled Cord VBG pO2 Cancelled Cord VBG HCO3 Cancelled Cord VBG Base Excess Cancelled Cord VBG O2 Sat Cancelled Barometric Pressure Cancelled Cancelled Blood Gas Comments Cancelled Cancelled Blood Type Antibody Screen 05/06/20 05:29 WBC RBC Hgb 9.0 L Hct 28.0 L MCV MCH MCHC RDW Std Deviation RDW Coeff of Rubén Plt Count MPV Immature Gran % (Auto) Neut % (Auto) Lymph % (Auto) [place] % (Auto) Eos % (Auto) Baso % (Auto) Neut # (Auto) Lymph # (Auto) [place] # (Auto) Eos # (Auto) Baso # (Auto) Immature Gran # (Auto) Cord ABG pH Cord ABG pCO2 Cord ABG pO2 Cord ABG HCO3 Cord ABG Base Excess Cord ABG O2 Sat Cord VBG pH Cord VBG pCO2 Cord VBG pO2 Cord VBG HCO3 Cord VBG Base Excess Cord VBG O2 Sat Barometric Pressure Blood Gas Comments Blood Type Antibody Screen
[2020-05-06] MEDS ORDERED: bisacodyL 10 MG SUPP PR PRN (16:44)
--- NOTE | 2020-05-06 17:00 | Obstetrical Progress Note ---
Date of Service May 06, 2020 Assessment & Plan Admission and Anticipated Discharge Date Admission Date: May 03, 2020 Physical Exam Genitourinary: OB Exam Abdomen: + vertex and + regular contractions Manual OB Exam: + cervical dilation 4 cm, + cervical effacement 80%, + station -2 and + amniotic fluid clear OB Exam Monitor Tracing: + category I and + normal FHT variability AROM with Amni-hook clear fluid Results & Data ([facility]) Vital Signs (Past 12 Hours) Vital Signs Temp Pulse Resp BP Pulse Ox 05/06/20 09:38 36.6 C 87 18 114/77 95 05/06/20 09:37 36.6 C 87 18 114/77 95
[2020-05-06 19:57] VITALS: O2SAT 99
[2020-05-07] MEDS: OXYCODONE/ACETAMINOPHEN 5mg/325mg TAB PO PRN ×2 (00:10→08:31)
[2020-05-07] MEDS: IBUPROFEN 600 MG TAB PO PRN ×2 (00:11→08:32)
[2020-05-07] MEDS: LEVOTHYROXINE SODIUM 50 MCG TABLET PO SCH (06:37)
[2020-05-07] MEDS: SIMETHICONE 80 MG CHEW PO SCH (08:32)
[2020-05-07] MEDS: FERROUS SULFATE 325 MG TAB PO SCH (08:32)
[2020-05-07] MEDS: PRENATAL VITAMIN 1 TAB PO SCH (08:32)
[2020-05-07] MEDS: DOCUSATE SODIUM 100 MG CAP PO SCH (08:32)
--- NOTE | 2020-05-07 10:11 | Obstetrical Progress Note ---
Date of Service May 07, 2020 Assessment & Plan Admission and Anticipated Discharge Date Admission Date: May 03, 2020 Subjective Patient is seen and examined. She feels well, no complaints. Pain is under control with oral meds. Ambulating without dizziness Voiding without difficulty Tolerating regular diet with out N&V Flatus + BM + Bleeding is minimal No fever/ chills/ CP/ SOB/ N&V/ Leg pain Breast and bottle feeding without problems Vital Signs Temp Pulse Resp BP Pulse Ox 05/07/20 00:00 36.7 C 86 18 127/76 05/06/20 16:45 36.6 C 75 18 114/75 99 Lab Results 05/03/20 05/04/20 05/04/20 Range/Units 10:11 15:13 15:14 WBC 8.92 18.99 H (4.8-10.8) K/uL RBC 4.36 4.17 L (4.2-5.4) M/uL Hgb 12.7 12.2 (12.0-16.0) g/dL Hct 37.8 35.9 L (37-47) % MCV 86.7 86.1 (80-100) fL MCH 29.1 29.3 (25-34) pg MCHC 33.6 34.0 (32-36) g/dL RDW Std Deviation 44.0 44.0 (36.4-46.3) fL RDW Coeff of Rubén 13.9 14.1 (11.5-14.5) % Plt Count 251 219 (130-400) K/uL MPV 10.0 9.7 (7.4-10.4) fL Immature Gran % (Auto) 0.4 % Neut % (Auto) 88.2 % Lymph % (Auto) 3.5 % [place] % (Auto) 7.7 % Eos % (Auto) 0.1 % Baso % (Auto) 0.1 % Neut # (Auto) 16.75 H (1.4-6.5) K/uL Lymph # (Auto) 0.67 L (1.2-3.4) K/uL [place] # (Auto) 1.47 H (0.11-0.59) K/uL Eos # (Auto) 0.01 (0-0.5) K/uL Baso # (Auto) 0.01 (0-0.2) K/uL Immature Gran # (Auto) 0.08 H (0.00-0.02) K/uL Cord ABG pH Cord ABG pCO2 Cord ABG pO2 Cord ABG HCO3 Cord ABG Base Excess Cord ABG O2 Sat Cord VBG pH Cord VBG pCO2 Cord VBG pO2 Cord VBG HCO3 Cord VBG Base Excess Cord VBG O2 Sat Barometric Pressure Blood Gas Comments Blood Type A Positive Antibody Screen NEGATIVE 05/04/20 05/04/20 05/05/20 Range/Units 15:49 15:49 06:02 WBC 16.01 H (4.8-10.8) K/uL RBC 3.55 L (4.2-5.4) M/uL Hgb 10.5 L (12.0-16.0) g/dL Hct 30.8 L (37-47) % MCV 86.8 (80-100) fL MCH 29.6 (25-34) pg MCHC 34.1 (32-36) g/dL RDW Std Deviation 45.2 (36.4-46.3) fL RDW Coeff of Rubén 14.2 (11.5-14.5) % Plt Count 210 (130-400) K/uL MPV 10.0 (7.4-10.4) fL Immature Gran % (Auto) 0.4 % Neut % (Auto) 84.6 % Lymph % (Auto) 6.7 % [place] % (Auto) 6.8 % Eos % (Auto) 1.4 % Baso % (Auto) 0.1 % Neut # (Auto) 13.54 H (1.4-6.5) K/uL Lymph # (Auto) 1.08 L (1.2-3.4) K/uL [place] # (Auto) 1.09 H (0.11-0.59) K/uL Eos # (Auto) 0.22 (0-0.5) K/uL Baso # (Auto) 0.02 (0-0.2) K/uL Immature Gran # (Auto) 0.06 H (0.00-0.02) K/uL Cord ABG pH Cancelled Cord ABG pCO2 Cancelled Cord ABG pO2 Cancelled Cord ABG HCO3 Cancelled Cord ABG Base Excess Cancelled Cord ABG O2 Sat Cancelled Cord VBG pH Cancelled Cord VBG pCO2 Cancelled Cord VBG pO2 Cancelled Cord VBG HCO3 Cancelled Cord VBG Base Excess Cancelled Cord VBG O2 Sat Cancelled Barometric Pressure Cancelled Cancelled Blood Gas Comments Cancelled Cancelled Blood Type Antibody Screen 05/06/20 Range/Units 05:29 WBC (4.8-10.8) K/uL RBC (4.2-5.4) M/uL Hgb 9.0 L (12.0-16.0) g/dL Hct 28.0 L (37-47) % MCV (80-100) fL MCH (25-34) pg MCHC (32-36) g/dL RDW Std Deviation (36.4-46.3) fL RDW Coeff of Rubén (11.5-14.5) % Plt Count (130-400) K/uL MPV (7.4-10.4) fL Immature Gran % (Auto) % Neut % (Auto) % Lymph % (Auto) % [place] % (Auto) % Eos % (Auto) % Baso % (Auto) % Neut # (Auto) (1.4-6.5) K/uL Lymph # (Auto) (1.2-3.4) K/uL [place] # (Auto) (0.11-0.59) K/uL Eos # (Auto) (0-0.5) K/uL Baso # (Auto) (0-0.2) K/uL Immature Gran # (Auto) (0.00-0.02) K/uL Cord ABG pH Cord ABG pCO2 Cord ABG pO2 Cord ABG HCO3 Cord ABG Base Excess Cord ABG O2 Sat Cord VBG pH Cord VBG pCO2 Cord VBG pO2 Cord VBG HCO3 Cord VBG Base Excess Cord VBG O2 Sat Barometric Pressure Blood Gas Comments Blood Type Antibody Screen PE: General: Alert, orientedx3, NAD CVS: S1S2 RRR Lungs; CTAB Abd: soft, NT, ND, BS+, fundus firm, below Umbilicus Incision: Clean, dry, intact Perineum intact, Lochia rubra minimal Ext; NT, no edema AP: 35 yo s/p C Section, pod# 3 VSS Afebrile doing well Continue routine postop care Encourage ambulation, PO intake All questions were answered D/C home , f/u in office Results & Data ([place]) Vital Signs (Past 12 Hours) Vital Signs Temp Pulse Resp BP 05/07/20 00:00 36.7 C 86 18 127/76
[2020-05-07 10:14] VITALS: BP 118/75; PULSE 81; TEMP 97.9
--- NOTE | 2020-05-16 16:12 | Discharge Summary (DS) ---
She is a 1, para 1, was brought in for induction because she was post-dates. She eventually went to full dilatation. She pushed for several hours. She basically had a failure of descent and a large amount of molding. After pushing for well over 2 hours and having a persistent bradycardia for about the last hour and a half she was diagnosed with having a cephalopelvic disproportion and nonreassuring heart rate tracing. She underwent primary low segment section. She did well. Her preoperative hemoglobin was 12.2. At the time of discharge her hemoglobin had dropped to 9.0. Estimated blood loss at the time of surgery was about 700-800 mL. Also at the time of surgery it was noted that she had a persistent occiput posterior position. Postoperative course other than the development of anemia was uneventful. She remained afebrile. Her bowel sounds returned promptly. At the time of discharge she was ambulating well, eating well, and she had been afebrile. She was managed on a combination of Percocet and Motrin, given the usual instructions to return for removal of denny and to do her postop followup visit at the [facility].
== END 2020-05-07 12:00 | disposition home or self-care (01) | DRG 788 ==
LOC: 4S1 08:03 → 4S2 05-04 19:28

== ENCOUNTER 2024-09-03 05:29 | Inpatient (IN) ==
--- NOTE | 2024-08-19 11:24 | Anesthesiology Consultation ---
Date of Service August 19, 2024 Assessment & Plan (1) Encounter for pre-operative examination: Infectious disease screening: Per assessment on 08/19/24- No known recent infectious disease contacts or current infectious disease symptoms. 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 History Surgery Operation Date: 09/03/24 07:30 Proposed Procedures p Section (Delivery of Baby Through Abdominal Incision) - Asia Omalley MD, FACOG Height/Weight Height: 5 ft 1 in Weight: 62.596 kg Allergies Allergy/AdvReac Type Severity Reaction Status Date / Time No Known Drug Allergies Allergy Unknown Verified 08/19/24 10:47 Medications Home Medications Medication Instructions Recorded Confirmed Last Taken prenat.vits,holly,[id number] 1 tab PO DAILY 09/14/19 08/19/24 05/02/20 12:00 loratadine [Claritin] 10 mg PO DAILY PRN Allergic 11/17/19 08/19/24 05/03/20 07:30 Symptoms acetone (urine) test (Ketone Urine #50 ea 04/22/24 08/14/24 Unknown Test strips) blood sugar diagnostic (OneTouch #150 ea 04/22/24 08/14/24 Unknown Verio test strips) blood-glucose meter (OneTouch #1 ea 04/22/24 08/14/24 Unknown Verio Reflect Meter) blood-glucose sensor (Dexcom G7 #3 ea 04/22/24 08/14/24 Unknown Sensor device) lancets 33 gauge (OneTouch Delica #150 ea 04/22/24 08/14/24 Unknown Plus Lancet) levothyroxine 75 mcg tablet 75 mcg PO DAILY #90 tabs 06/18/24 08/19/24 Unknown pen needle, diabetic 32 gauge x #100 ea 07/07/24 08/14/24 Unknown 5/32" (BD Ultra-Fine Desiree Pen Needle) insulin aspart U-100 100 unit/mL 10 unit (0.1 mL) subcut BID #15 mL 07/28/24 08/19/24 Unknown (3 mL) subcutaneous pen (Novolog FlexPen U-100 Insulin aspart) Past Medical History Medical History (Updated 08/19/24 @ 11:22 by Asia Hernadez) Gestational diabetes has Dexcom; currently using insulin aspart BID PRN History of PCOS Subclinical hypothyroidism Varicella vaccine Past Family History Family History Father Prostate cancer Mother Malignant neoplasm of urethra Family/Other No problems noted. Grandfather (Maternal) Colorectal cancer Denies family history of Ovarian cancer Myocardial infarction Breast cancer Past Surgical History Surgical History H/O section [facility]; had epidural in place prior to conversion to C/S; dosed; no issues History of ankle surgery R ankle 09/2023 Social History Smoking Status: Never smoker Do You Dip or Chew Tobacco: No Hx Alcohol Use: No Hx Substance Use: No substance use type: does not use Lab Results Anesthesia Preop Results Results Anesthesia Widget: TSH 1.924 uIu/ml (0.300-4.500) 07/31/24 Free T4 0.49 ng/dl (0.61-1.60) L 07/31/24
--- NOTE | 2024-09-02 15:39 | History & Physical Report ---
Date of Service September 02, 2024 Assessment & Plan (1) Supervision of elderly multigravida: Plan: IUP at 39 weeks for repeat LTCS procedure and risks reviewed with the patient and all questions answered to her satisfaction. History of Present Illness Primary Care Provider: Geneva Church MD Patient is a 39 yo female EDC 09/10/24 who presents at 39 weeks for repeat LTCS. first LTCS done for FTP. current complicated by GDM on insulin, hypothyroidism and AMA status. testing has been reassuring. GBS negative. Blood type A positive. Allergies Allergy/AdvReac Type Severity Reaction Status Date / Time No Known Drug Allergies Allergy Unknown Verified 09/02/24 14:35 Home Medications Medication Instructions Recorded Confirmed Type prenat.vits,holly,huf-vzmh-avwvr 1 tab PO DAILY 09/14/19 09/02/24 History loratadine [Claritin] 10 mg PO DAILY PRN Allergic 11/17/19 09/02/24 History Symptoms acetone (urine) test (Ketone Urine #50 ea 04/22/24 09/02/24 Rx Test strips) blood sugar diagnostic (OneTouch #150 ea 04/22/24 09/02/24 Rx Verio test strips) blood-glucose meter (OneTouch #1 ea 04/22/24 09/02/24 Rx Verio Reflect Meter) blood-glucose sensor (Dexcom G7 #3 ea 04/22/24 09/02/24 Rx Sensor device) lancets 33 gauge (OneTouch Delica #150 ea 04/22/24 09/02/24 Rx Plus Lancet) levothyroxine 75 mcg tablet 75 mcg PO DAILY #90 tabs 06/18/24 09/02/24 Rx pen needle, diabetic 32 gauge x #100 ea 07/07/24 09/02/24 Rx 5/32" (BD Ultra-Fine Desiree Pen Needle) insulin aspart U-100 100 unit/mL 10 unit (0.1 mL) subcut BID #15 mL 07/28/24 09/02/24 Rx (3 mL) subcutaneous pen (Novolog FlexPen U-100 Insulin aspart) Patient History Medical History (Updated 09/02/24 @ 15:41 by Asia Omalley MD, FACOG) Subclinical hypothyroidism Gestational diabetes has Dexcom; currently using insulin aspart BID PRN Varicella vaccine History of PCOS Surgical History History of ankle surgery R ankle 09/2023 H/O section [facility]; had epidural in place prior to conversion to C/S; dosed; no issues Family History Father Prostate cancer Mother Malignant neoplasm of urethra Family/Other No problems noted. 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: No Beliefs That Will Affect Care: None marital status: marital status details: Junior Rose (41) [phone] Current Living Situation: Family Current Living Situation Comment: lives with , son, occasionaly dog current occupational status: employed current occupation: [employer] Feels Safe at Home: Yes Physical Activity Frequency: 3-4 Times per Week Assistive Devices: Contacts and Glasses Review of Systems All systems reviewed & are unremarkable except as noted in HPI & below Physical Exam Constitutional: WD/WN, vitals as above Respiratory: normal respiratory effort, lungs clear to auscultation Cardiovascular: RRR, no murmur, no edema Psychiatric: A+Ox3, euthymic affect Genitourinary: OB Exam Abdomen: + fundal height (term) and + vertex OB Exam Monitor Tracing: + external FHT monitor used, + external uterine monitor used, + category I and + normal FHT variability Coding Level of Care Code 50629 INT INP/OBS CARE 1/40MIN Diagnoses Encounter for supervision of multigravida of advanced maternal age in third trimester O09.523 Trimester: third trimester (1) Supervision of elderly multigravida Trimester: third trimester Qualified Code(s): O09.523 - Supervision of elderly multigravida, third trimester
[2024-09-03 06:14] LABS: Hematocrit (blood only) 36.7 % (37.0-47.0); Hemoglobin 12.6 g/dl (12.0-16.0); Mean Corpuscular Hgb Conc 34.3 g/dL (32.0-36.0); Mean Corpuscular Volume 84.6 fL (80.0-100.0); Mean Platelet Volume 9.9 fL (9.4-12.4); Platelet Count 247 K/uL (130-400); RDW Coefficient of Variation 14.1 % (11.5-14.5); RDW Standard Deviation 43.6 fL (36.4-46.3); Red Blood Count 4.34 M/uL (4.20-5.40); White Blood Count 10.31 K/ul (4.8-10.8)
[2024-09-03] MEDS ORDERED: SODIUM CHLORIDE 0.9% 1,000 ML IV SCH ×2 (06:30→09:00)
[2024-09-03] MEDS: ACETAMINOPHEN 500 MG TAB PO SCH (06:31)
[2024-09-03] MEDS ORDERED: MoRPHine SULFATE PF 1 MG/ML 10 ML AMP/VIAL ONE (06:38)
[2024-09-03] MEDS ORDERED: fentaNYL citrate PF 100 MCG/2 ML VIAL ONE (06:38)
[2024-09-03] MEDS ORDERED: PHENYLEPHRINE HCL 25 MG/250 ML NSS IV ONE (06:40)
--- NOTE | 2024-09-03 06:43 | History & Physical Bridge Note ---
Date of Service September 03, 2024 History & Physical Bridge Note I have examined the patient, reviewed the History & Physical and in the interval since the performance of the History & Physical I have noted the following changes of clinical significance: no changes noted
[2024-09-03] MEDS: CITRIC ACID/SODIUM CITRATE 15 ML UDC PO SCH (07:01)
[2024-09-03] MEDS: SODIUM CHLORIDE 0.9% 1,000 ML IV SCH (07:02)
[2024-09-03] MEDS: ceFAZolin 2000MG 2,000 MG/15 ML SYR IV SCH (07:34)
[2024-09-03] MEDS ORDERED: NALOXONE HCL 1 MG in SODIUM CHLORIDE 0.9% 1,000 ML IV PRN (08:10)
[2024-09-03] MEDS ORDERED: ONDANSETRON INJ 2 MG/ML 2 ML VIAL IV PRN (08:10)
[2024-09-03] MEDS ORDERED: HYDROmorphone INJ 0.5 MG/0.5 ML SYR IV PRN (08:10)
[2024-09-03] MEDS ORDERED: diphenhydrAMINE 50 MG/ML VIAL IV PRN (08:10)
[2024-09-03] MEDS ORDERED: ePHEDrine sulfate 50 MG/ML AMP IV PRN (08:10)
[2024-09-03] MEDS ORDERED: NALOXONE HCL 0.4 MG/1 ML VIAL/CARP IV PRN (08:10)
[2024-09-03] MEDS ORDERED: NALOXONE HCL 0.08 MG in SYRINGE 1.8 ML IV PRN (08:10)
[2024-09-03] MEDS ORDERED: ONDANSETRON INJ 2 MG/ML 2 ML VIAL ONE (08:12)
[2024-09-03] MEDS ORDERED: NO NARCOTICS OR SEDATIVES SCH (08:15)
[2024-09-03] MEDS ORDERED: DC INTRASPINAL MORPHINE SCH (08:15)
[2024-09-03] MEDS ORDERED: MAGNESIUM HYDROXIDE SUSP 30 ML UDC PO PRN (08:57)
[2024-09-03] MEDS ORDERED: SENNA 8.6 MG TAB PO PRN (08:57)
[2024-09-03] MEDS ORDERED: CALCIUM CARBONATE 500 MG CHEWABLE TAB PO PRN (08:57)
[2024-09-03] MEDS ORDERED: HYDROCORTISONE ACETATE 25 MG SUPP PR PRN (08:57)
[2024-09-03] MEDS ORDERED: BENZOCAINE 20% SPRY 85 APPLN/85 GM CAN EXT PRN (08:57)
[2024-09-03] MEDS: KETOROLAC 30 MG/ML VIAL IV SCH (09:27)
--- NOTE | 2024-09-03 10:29 | Anesthesiology Progress Note ---
Date of Service September 03, 2024 Anesthesia Post Procedure Vital Signs Vital Signs: Temp Pulse Resp BP 09/03/24 10:22 77 123/78 09/03/24 10:12 72 108/79 09/03/24 10:02 75 109/69 09/03/24 09:52 68 110/66 09/03/24 09:42 68 108/69 09/03/24 09:32 75 105/59 L 09/03/24 09:22 75 102/56 L 09/03/24 09:15 73 102/55 L 09/03/24 09:14 78 101/58 L 09/03/24 09:00 36.5 C 68 18 108/69 09/03/24 09:00 81 106/64 09/03/24 07:04 87 133/77 09/03/24 07:00 18 09/03/24 07:00 36.5 C 18 09/03/24 05:46 37.0 C 18 09/03/24 05:39 89 131/79 Notes Mental Status: alert / awake / arousable Patient Amnestic to Procedure: Yes Nausea / Vomiting: adequately controlled Pain: adequately controlled Airway Patency, RR, SpO2: stable & adequate BP & HR: stable & adequate Hydration State: stable & adequate Neuraxial Anesthesia: was administered and sensory block is resolving Anesthetic Complications: no major complications apparent
--- NOTE | 2024-09-03 10:34 | Post Operative Brief Note ---
Immediate Post Op Note Date of Surgery September 03, 2024 Pre & Post Diagnosis Operation Date: 09/03/24 07:30 Pre-Op Diagnosis: 1.) Intrauterine at 39 weeks for repeat 2.) Pt request a repeat Post-Op Diagnosis: 1.) Intrauterine at 39 weeks for repeat 2.) Pt request a repeat I identified the patient and participated in the time-out.: Yes Procedure Operation Date: 09/03/24 07:30 Actual Procedures p Section in Labor and Delivery for a Live Male Child at 0820 - Asia Omalley MD, FACOG Surgeon Asia Omalley MD, FACOG Towing Pilot William Quiroga MD/ Dwight Arevalo MS2 Quantitative Blood Loss (QBL) 239 mL Findings Consistent with Post-Op Diagnosis Gravid uterus consistent with term in size. A 0.5 cm fibroid in the area of the uterine incision. Bilateral paratubal cysts were small. Ovaries were normal bilateral. Specimens Specimen Description: 1.) Placenta (HOLD) 2.) Cord Blood Obtained Drains Kinney Catheter (Placed by Pennie Rangel and Becky Cortez, student) Anesthesia Type Spinal Complications none Disposition Accompanied Patient To Recovery: Yes Disposition: L&D
--- NOTE | 2024-09-03 10:40 | Operative Report ---
Post Operative Report Pre & Post Diagnosis Operation Date: 09/03/24 07:30 Pre-Op Diagnosis: 1.) Intrauterine at 39 weeks for repeat 2.) Pt request a repeat Post-Op Diagnosis: 1.) Intrauterine at 39 weeks for repeat 2.) Pt request a repeat I identified the patient and participated in the time-out.: Yes Procedure Operation Date: 09/03/24 07:30 Actual Procedures p Section in Labor and Delivery for a Live Male Child at 0820 - Asia Omalley MD, FACOG Surgeon Asia Omalley MD, FACOG Support Services Tech William Quiroga MD/ Dwight Arevalo MS2 Quantitative Blood Loss (QBL) 239 mL Findings Consistent with Post-Op Diagnosis Specimens Placenta to hold Drains Kinney catheter to straight drainage with clear urine at the end of the case Anesthesia Type Spinal Complications none Disposition Accompanied Patient To Recovery: Yes Disposition: L&D Indications Patient is a 39-year-old 2 para 1-0-0-1 female who presents at 39-0/7 weeks for repeat section. Prior section was done for failure to progress. This has been complicated by GDM on insulin, hypothyroidism and advanced maternal age. testing has been reassuring. Patient is requesting repeat section. The procedure and its risks were reviewed with the patient and all questions were answered to her satisfaction. Description of Procedure As the patient received adequate subarachnoid block she was prepped and draped in the usual sterile fashion. Low transverse skin incision was made with a scalpel and carried to the fascia with the same scalpel. The fascial incision was then extended transversely with Aviles scissors. The edges were then grasped with Filippo clamps and the underlying rectus muscles bluntly sharply dissected off of the overlying fascia. The rectus muscles were elevated along the midline and entered with a scalpel. The underlying peritoneum was then entered bluntly. The rectus muscle were then divided with Aviles scissors inferiorly. The bladder blade was then placed into the peritoneal cavity. The bladder was then taken down off the anterior surface of the uterus and placed behind the bladder blade. The bladder was then taken down off the anterior surface of the uterus with blunt and sharp dissection. The lower uterine segment was entered with a scalpel and extended transversely by stretching the incision in a cephalad and caudad direction. Membranes were ruptured for clear fluid. This was delivered from the vertex presentation with moderate fundal pressure. There was a loose nuchal cord present. The rest of the delivered easily and with some stimulation was vigorous crying and moving all 4 limbs. Cord was clamped and cut and the was handed off to Dr. Fay who was in attendance his master tax advisor along with the nursery team. After cord blood was obtained, the placenta was expressed intact with a three-vessel cord. The uterus was then exteriorized and covered with a clean lap sponge. The uterine cavity was explored and found to be free of any placental tissue or membranes. The uterus was then closed in 2 layers in a running locking imbricating fashion. 1/2 cm fibroid in the direct line of the incision was removed with the Bovie. Hemostasis was noted to be excellent. The posterior cul-de-sac was suctioned for small amount of blood. After examining the uterine incision once more and continue to have excellent hemostasis, the uterus was placed back inside the abdominal cavity. The gutters were explored and a few small clots were removed from the left gutter. And from the cul-de-sac. The rectus muscle were then brought together on the midline with individual stitches of 0 Monocryl. The fascia was closed in a running fashion with 0 Vicryl. After irrigating the subcutaneous layer, skin edges were reapproximated with 4-0 Vicryl in a subcuticular fashion. Mother and are doing well after the section and are stable upon arrival back in labor and delivery. I attest to the content of the Intraoperative Record and any orders documented therein. Any exceptions are noted below. OB Procedure Charges 40129
[2024-09-03] MEDS: NALBUPHINE HCL INJ 10 MG/ML AMP IV PRN (10:49)
[2024-09-03] MEDS: oxyCODONE HCL IR 5 MG TAB (IMMEDIATE RELEASE) PO PRN (11:59)
[2024-09-03] MEDS: SIMETHICONE 80 MG CHEW PO SCH (12:23)
[2024-09-03] MEDS: ACETAMINOPHEN 325 MG TAB PO SCH (15:50)
[2024-09-03] MEDS: OXYTOCIN 20 UNITS/LR 1,002 ML IV SCH (16:05)
[2024-09-03] MEDS: DOCUSATE SODIUM 100 MG CAP PO SCH (21:07)
[2024-09-04] MEDS ORDERED: diphenhydrAMINE Capsule 25 MG CAP PO PRN (02:12)
[2024-09-04] MEDS ORDERED: PROMETHAZINE 12.5 MG/50.5 ML BAG IV PRN (02:12)
[2024-09-04] MEDS ORDERED: diphenhydrAMINE 50 MG/ML VIAL IV PRN (02:12)
[2024-09-04] MEDS ORDERED: ONDANSETRON INJ 2 MG/ML 2 ML VIAL IV PRN (02:12)
[2024-09-04] MEDS ORDERED: HYDROmorphone INJ 0.5 MG/0.5 ML SYR IV PRN (02:12)
[2024-09-04 07:11] LABS: Basophils # (auto) 0.03 K/uL (0.00-0.20); Basophils % (auto) 0.3 %; Eosinophils % (auto) 0.9 %; Hematocrit (blood only) 33.9 % (37.0-47.0); Hemoglobin 11.3 g/dl (12.0-16.0); Immature Granulocytes # (auto) 0.06 K/uL (0.01-0.20); Immature Granulocytes % (auto) 0.6 %; Lymphocytes # (auto) 1.24 K/uL (1.20-3.40); Lymphocytes % (auto) 11.4 %; Mean Corpuscular Hemoglobin 28.7 pg (25.0-34.0); Mean Corpuscular Hgb Conc 33.3 g/dL (32.0-36.0); Mean Platelet Volume 9.7 fL (9.4-12.4); Monocytes # (auto) 0.74 K/uL (0.11-0.59); Monocytes % (auto) 6.8 %; Neutrophils # (auto) 8.68 K/uL (1.40-6.50); Platelet Count 221 K/uL (130-400); RDW Coefficient of Variation 14.2 % (11.5-14.5); RDW Standard Deviation 44.3 fL (36.4-46.3); Red Blood Count 3.94 M/uL (4.20-5.40); White Blood Count 10.85 K/ul (4.8-10.8)
--- NOTE | 2024-09-04 08:06 | Medical Student Progress Note ---
Date of Service September 04, 2024 Assessment & Plan (1) S/P repeat low transverse : Plan: 39 yr old day 1 s/p repeat section. She is recovering very well. She is ambulating, urinating independently, and passing gas. #Repeat : Incision is healing well. Pain is well managed. -Continue to monitor surgical incision -Expected to be ready to be discharged tomorrow. Admission and Anticipated Discharge Date Admission Date: September 03, 2024 Subjective 39 yr old day 1 s/p repeat section. She is overall doing very well and has no concerns. Her pain is a 5/10 if she is moving, but otherwise is a 2/10 at rest. She is able to ambulate, independently empty her bladder, and pas gas. She is continuing to have minimal bleeding. She is not planning on . Denies fever, chills, headache, blurry vision, chest pain, SOB, cough, leg pain or swelling. Physical Exam Constitutional: Well appearing, NAD Respiratory: Lungs CTAB without wheezes, rales, rhonchi Cardiovascular: Heart RRR without murmurs, rubs, gallops. No LE swelling, warmth, redness. Gastrointestinal (Abdomen): Abdomen is soft, nontender, nondistended. Uterus is firm and nontender, palpated at the umbilicus. Surgical incision is well approximated and nonerythematous Psychiatric: appropriate mood and affect. Results & Data Vital Signs (Past 12 Hours) Vital Signs Temp Pulse Resp BP Pulse Ox O2 Del Method 09/04/24 03:15 36.7 C 87 16 126/78 Room Air 09/04/24 02:00 14 98 09/04/24 01:10 18 99 09/04/24 00:20 16 97 09/03/24 23:30 16 98 09/03/24 23:30 36.5 C 85 16 113/74 98 Room Air 09/03/24 22:00 16 96 09/03/24 21:48 16 97 09/03/24 20:05 14 98 09/03/24 20:05 36.7 C 70 14 120/75 98 Room Air
[2024-09-04] MEDS: FERROUS SULFATE 325 MG TAB PO SCH (08:21)
[2024-09-04] MEDS: PRENATAL VITAMIN 1 TAB PO SCH (08:21)
--- NOTE | 2024-09-04 08:34 | Obstetrical Progress Note ---
Date of Service September 04, 2024 Assessment & Plan (1) S/P repeat low transverse : satisfactory post-op day 1 continue current care plan Subjective Ambulation: ambulating normally Voiding: no voiding problems Passing Gas:: Yes Diet Tolerance:: regular diet Lochia:: Small Feeding Type:: bottle feeding pain well controlled this AM ambulating as well Review of Systems All systems reviewed & are unremarkable except as noted in HPI & below Physical Exam Constitutional WD/WN, vitals as above Gastrointestinal (Abdomen) incision dry and intact Psychiatric A+Ox3, euthymic affect Genitourinary OB Exam Abdomen: + fundal height Fundus: + firm and + relation to umbilicus (at U) Results & Data Vital Signs (Past 12 Hours) Vital Signs Temp Pulse Resp BP Pulse Ox O2 Del Method 09/04/24 03:15 98.1 F 87 16 126/78 Room Air 09/04/24 02:00 14 98 09/04/24 01:10 18 99 09/04/24 00:20 16 97 09/03/24 23:30 16 98 09/03/24 23:30 97.7 F 85 16 113/74 98 Room Air 09/03/24 22:00 16 96 09/03/24 21:48 16 97
[2024-09-04] MEDS ORDERED: KETOROLAC 30 MG/ML VIAL IV PRN (09:30)
[2024-09-04] MEDS: IBUPROFEN 600 MG TAB PO SCH (09:48)
[2024-09-04] MEDS: LEVOTHYROXINE SODIUM 75 MCG TABLET PO SCH (11:01)
[2024-09-04] MEDS: oxyCODONE HCL IR 5 MG TAB (IMMEDIATE RELEASE) PO PRN (12:07)
[2024-09-04 15:27] VITALS: O2SAT 97
[2024-09-04 19:24] VITALS: RESP 16
[2024-09-04] MEDS: DIPHTHER/TETAN/PERTUS Vaccine (Tdap, Adol/Adult) 0.5mL IM ONE (19:34)
[2024-09-04] MEDS: MoRPHine SULFATE PF 1 MG/ML 10 ML AMP/VIAL INT SPINAL ONE (19:35)
[2024-09-04] MEDS: bisacodyL 5 MG TABEC PO SCH (21:28)
[2024-09-04 22:03] VITALS: PULSE 77
[2024-09-05 07:24] LABS: Hematocrit (blood only) 32.8 % (37.0-47.0)
--- NOTE | 2024-09-05 08:04 | Obstetrical Progress Note ---
Date of Service September 05, 2024 Assessment & Plan (1) Encounter for assessment: Plan: Patient is POD 2 s/p rLTCS and doing well - Eating well, voiding well, ambulating well - vitals reviewed and within normal limits - pain well controlled with analgesics - OOB, ambulation, diet progression as tolerated - Blood type: A+, GBS neg, rubella immune - Plan to discharge today - After discharge, 6 week follow up with OBGYN Admission and Anticipated Discharge Date Admission Date: September 03, 2024 Supervising Physician Co-Signing Physician Notes Resident Physician Supervision Note: I was present with Dr. Pickens during the history and exam. I discussed the case with the resident and agree with the findings and plan as documented in the note. Any exceptions or clarifications are listed here: [None] Documented By: Alex Alejandre MD, FACOG Subjective 39 yo post-operative day 2 s/p rLTCS Ambulation: ambulating normally Voiding: no voiding problems Passing Gas:: Yes Diet Tolerance:: regular diet Lochia:: Small Feeding Type:: breast feeding Current Pain Level: 3/10 Resting comfortably this AM in NAD. Denies ROBLES, CP, SOB, N/V/D, LE pain/swelling. Physical Exam Physical Exam: General: patient resting comfortably, NAD, non-toxic in appearance, answers questions appropriately. Skin: warm, dry, intact HEENT: NC/AT, anicteric sclera, conjunctiva without injection, moist mucus membranes. Heart: +S1/S2, regular, no m/r/g Lungs: equal air entry bilaterally, no rales/rhonchi/wheezes Abd: +BS, soft, NT/ND, uterine fundus firm at umbilicus Ext: warm, no clubbing/cyanosis or edema, Elizabeth's neg. Neuro: nonfocal, speech intact, no facial droop, moving all extremities. Results & Data Vital Signs (Past 12 Hours) Vital Signs Temp Pulse Resp BP Pulse Ox O2 Del Method 09/04/24 22:01 36.8 C 77 16 119/78 97 Room Air Resident Activity Tracking Resident Involvement: Resident Care Provided Care Provided: OB Delivery
[2024-09-05] MEDS ORDERED: bisacodyL 10 MG SUPP PR PRN (08:57)
[2024-09-05] MEDS ORDERED: IBUPROFEN 600 MG TAB PO PRN (09:00)
[2024-09-05 09:02] VITALS: BP 118/74; TEMP 97.9
[2024-09-05] MEDS ORDERED: ACETAMINOPHEN 325 MG TAB PO PRN (15:30)
--- NOTE | 2024-09-08 10:30 | Discharge Summary ---
Date of Service September 08, 2024 Admission HPI Per Admitting Provider Patient is a 39 yo female EDC 09/10/24 who presents at 39 weeks for repeat LTCS. first LTCS done for FTP. current complicated by GDM on insulin, hypothyroidism and AMA status. testing has been reassuring. GBS negative. Blood type A positive. Admission Exam (Per Admitting) Constitutional WD/WN, vitals as above Respiratory normal respiratory effort, lungs clear to auscultation Cardiovascular RRR, no murmur, no edema Psychiatric A+Ox3, euthymic affect Genitourinary OB Exam Abdomen: + fundal height and + vertex OB Exam Monitor Tracing: + external FHT monitor used, + external uterine monitor used, + category I and + normal FHT variability Discharge Data Consultations 09/03/24 05:30 Consult Anesthesiology Stat Procedures Performed Operation Date: 09/03/24 07:30 Actual Procedures p Section in Labor and Delivery for a Live Male Child at 0820 - Asia Omalley MD, FACOG Discharge Plan Discharge Items Patient Disposition: Home - Self-Care Reason For Visit: History of Section Discharge Diagnosis: cs Activity: Per Instructions section Non-emergency contact: End Lathe Operator Call non-emergency contact if: your pain is not controlled Follow-up/Referrals: Geneva Church MD [Primary Care Provider] - Diet: Regular OB Addtl Attending Provider Instructions: ACTIVITY RECOMMENDATIONS: * Gradual return to full activity over the next 2-3 weeks. * No lifting - nothing heavier than baby over the next 2-3 weeks. * Do not engage in vigorous exercise, sexual activity or sports until cleared by your physician. * Do not drive or operate any motorized equipment until cleared by your physician. * You may shower/bathe daily. MEDICATIONS: For discomfort or pain, you may use Acetaminophen (Tylenol), Ibuprofen (Advil), or Naproxen (Aleve) following the package directions. For constipation you may use Colace following the package directions. BREAST CARE: If you are not breast feeding: * Wear a supportive bra 24 hours a day for one to two weeks. * Avoid stimulating your breasts and nipples as much as possible during the first few weeks after delivery. * When taking a shower, have the warm water hit your back, not breasts. * When your breasts feel full, apply ice packs. Usually three to four times a day helps ease the discomfort. * Take a mild pain medication (Tylenol / Motrin) when you are uncomfortable. If breast feeding: * Use breast milk to lubricate nipples. Lansinoh cream may be used for sore nipples. You do not need to remove cream prior to breast feeding. If using a different brand of cream, check the label for directions regarding removal of cream prior to nursing. * Wear a supportive bra. * If having problems with breasts or breast feeding, call a investigations consultant or your health care provider. SPECIAL CARE INSTRUCTIONS: When you are discharged from the hospital, it is important for you to follow the instructions listed below: * During the first week at home, you should be able to care for yourself and your baby. In addition, the usual light household activities are encouraged. * Limit your activities to the way you feel. Do not try to clean the house or move furniture. Be sensible. * If you actively engage in sports and have done so up until the time of your delivery, you may resume these activities as soon as you feel able. This may take up to one month or even longer. Use good judgment. * Continue to take your vitamins for at least six weeks after the of your baby. * Your diet need not be limited unless you were on a special diet before your delivery. Breast-feeding mothers need around 2500 calories per day and at least 64-80 ounces of fluid per day (8 to 10 glasses). * You should eat foods from the four major food groups. Crash diets or fad diets are to be avoided. Eating lean meats, fresh fruits and vegetables, low-fat dairy products, high fiber foods and a regular exercise program, will help you get back to your pre- weight without putting your health at risk. * Constipation is sometimes a problem after delivery. Take a mild laxative as needed. If breast feeding, Milk of Magnesia is acceptable to use. You may use a suppository or Fleets enema. * A daily shower or tub bath is suggested. Wash incision daily with warm soapy water and pat dry. It doesn't need to be covered unless drainage is present. * A bloody vaginal discharge will usually continue until around four weeks . A small amount of bleeding may continue for as long as six weeks. Vaginal discharge changes from the bright red bleeding after delivery to pink then brownish and finally yellowish-pink before becoming white and disappearing. * Bleeding may increase with activity. Your first period may come in 4-8 weeks. If you are breast feeding, your period may be delayed even longer. * Malcolm (sex) can begin whenever both you and your partner feel comfortable and do not have any form of genital infection. It is recommended that you wait at least six weeks for internal and external healing to occur. If you have questions, please talk to your health care practitioner. A condom should be used to prevent infection and . * Foreplay, gentle intercourse and lubrication is very important the first several times to prevent pain. A water-based lubricant such as K-Y jelly or Astroglide may be used. * If you have RH negative blood and your baby is RH positive, you will receive RHOGAM by injection prior to discharge. The nurse will give you a card to keep with you that has the date and place that you received RHOGAM after delivery. * During your care, you had a Rubella screen done to check for the presence of rubella antibodies in your blood. If your test was negative, you will receive a Rubella vaccine prior to discharge. This vaccine may cause a fever, sudeep ess at the injection site and flu-like symptoms. If these symptoms persist, notify your health care practitioner. is not advised for one month after a Rubella vaccine. * Verbalizes understanding of car seat law as reviewed with patient nursing. * Car Seat hand-out given and reviewed with patient by nursing. * Shaken baby information reviewed with patient by nursing. Call you doctor if: * Heavy bleeding (saturating several pads an hour) or passing clots the size of your fist. * A fever >101 degrees F (38.3 degrees C) on two occasions four hours apart and/or chills. * Unusual pain in the pelvic or vaginal areas. * Call the doctor for any increased redness, drainage or swelling around the incision and any pain unrelieved by prescribed pain medication. * "Baby Blues" lasting longer than two weeks. If you have any questions or concerns, call your health care practitioner at . FOLLOW UP VISIT: * Please call the office at to schedule a 6 week examination. It is important you keep this appointment. It is important for you to make arrangements for either yearly or twice yearly check-ups thereafter. Pending Studies at Discharge: No Stand-Alone Forms: My [facility], Smoking Cessation Medications and DC Order Prescriptions: New ibuprofen 600 mg tablet 600 mg PO Q8H PRN (Reason: pain) Qty: 20 0RF oxycodone 5 mg tablet 5 mg PO Q6HWA PRN (Reason: pain) Qty: 20 0RF Continued loratadine 10 mg PO DAILY PRN (Reason: Allergic Symptoms) prenat.vits,holly,uic-gxdh-ztene Tablet 1 tab PO DAILY Discontinued levothyroxine 75 mcg tablet 75 mcg PO DAILY Qty: 90 1RF insulin aspart U-100 [Novolog FlexPen U-100 Insulin] 100 unit/mL (3 mL) insulin pen 10 unit subcut BID Qty: 15 0RF Rx Instructions: inject 10 units twice a day as needed for higher carbohydrate meals (DME) pen needle, diabetic [BD Ultra-Fine Desiree Pen Needle] 32 gauge x 5/32" needle See Rx Instructions miscellaneous .MEDSUPPLY Qty: 100 0RF Rx Instructions: As directed (DME) Ketone Urine Test Strip See Rx Instructions .MEDSUPPLY Qty: 50 4RF Rx Instructions: As directed to check ketones in urine once a day in the morning (DME) OneTouch Verio test strips Strip See Rx Instructions .MEDSUPPLY Qty: 150 4RF Rx Instructions: check blood sugars 4 times a day (DME) blood-glucose meter [OneTouch Verio Reflect Meter] Misc See Rx Instructions miscellaneous .MEDSUPPLY Qty: 1 0RF Rx Instructions: As directed (DME) Dexcom G7 Sensor Device See Rx Instructions .Route Qty: 3 4RF Rx Instructions: As directed to change sensor every 10 days (DME) lancets [OneTouch Delica Plus Lancet] 33 gauge misc See Rx Instructions .MEDSUPPLY Qty: 150 4RF Rx Instructions: As directed check blood sugars 4 times a day Discharge Orders: Discharge Order (Routine); Ordered 09/05/24 Ordered By: Papi Sanchez/Other Patient Handouts: DVT in , Understanding Depression Admission Data Admit Date/Time: 09/03/24 05:29 Attending Provider: Asia Omalley Admit Provider: Asia Omalley Primary Care Provider: Geneva Church Other Providers: Alex Alejandre; Papi Pickens Other Interventions: Discharge Summary Assessment (RN) Last Done: 09/05/24 11:01 Coding Level of Care Code 27930 IN/OBS DISCH 30 MIN/LESS
== END 2024-09-05 12:20 | disposition home or self-care (01) | DRG 788 ==
LOC: 4S1 05:29 → EDSTATUS 07:30 → 4E2 11:20